=== PATIENT | female | born 1960 ===

== ENCOUNTER 2018-09-06 14:41 | Inpatient (IN) | payer BC, OTHER ==
[2018-09-06 15:22] VITALS: BMI 26.6
--- NOTE | 2018-09-06 16:23 | ED PDOC ---
Arrival/HPI - General Time Seen by Provider: 09/06/18 14:50 Historian: Patient - History of Present Illness Narrative History of Present Illness (Text): 09/06/18 16:19 58 year old F with pmh of lupus and hypothyroid presents with LOC and headache s/p fall at home prior to arrival. Patient reports ambulating and suddenly passing out at home, hitting her head on the floor. Patient denies head trauma prior to LOC. Patient denies any fevers, chills, dizziness, chest pain, shortness of breath, dyspnea on exertion, cough, abdominal pain, nausea, vomiting, diarrhea, back pain, neck pain, or any other complaint. Time/Duration: Prior to Arrival Symptom Onset: Sudden Symptom Course: Unchanged Activities at Onset: Light Context: Home Past Medical History - Provider Review Nursing Documentation Reviewed: Yes - Tetanus Immunization Tetanus Immunization: Unknown - Neurological Hx Migraine: Yes - Endocrine/Metabolic Hx Hypothyroidism: Yes Hx Systemic Lupus Erythematosus: Yes - Gastrointestinal Hx Gastroesophageal Reflux: Yes - Psychiatric Hx Psychophysiologic Disorder: No Hx Substance Use: No - Surgical History Hx Cholecystectomy: Yes Hx Gastric Bypass Surgery: Yes Hx Hysterectomy: Yes Hx Thyroidectomy: Yes - Anesthesia Hx Anesthesia: Yes Hx Anesthesia Reactions: No Hx Malignant Hyperthermia: No - Suicidal Assessment Feels Threatened In Home Enviroment: No Family/Social History - Physician Review Nursing Documentation Reviewed: Yes Family/Social History: Unknown Family HX Smoking Status: Never Smoked Hx Alcohol Use: Yes Hx Substance Use: No Hx Substance Use Treatment: No Allergies/Home Meds Allergies/Adverse Reactions: Allergies No Known Allergies Allergy (Verified 09/11/15 15:48) Home Medications: Home Meds Medication Instructions Recorded Confirmed Atorvastatin [Lipitor] 20 mg PO DAILY 09/11/15 09/11/15 Hydroxychloroquine Sulfate 200 mg PO BID 09/11/15 09/11/15 Levothyroxine Sodium [Synthroid] 325 mcg PO DAILY 09/11/15 09/11/15 Linaclotide [Linzess] 145 mcg PO PRN PRN 09/11/15 09/11/15 Polyethylene Glycol 3350 [[id number]] 17 gm PO PRN PRN 09/11/15 09/11/15 Zolpidem [Ambien] 10 mg PO HS 09/11/15 09/11/15 Review of Systems - Physician Review All systems were reviewed & negative as marked: Yes - Review of Systems Constitutional: absent: Fevers ENT: absent: Sore Throat, Rhinorrhea, Epistaxis Respiratory: absent: SOB, Cough, Wheezing Cardiovascular: Syncope. absent: Chest Pain Gastrointestinal: absent: Abdominal Pain, Diarrhea, Nausea, Vomiting, Hematochezia Genitourinary Female: absent: Dysuria, Hematuria Musculoskeletal: absent: Arthralgias, Back Pain, Joint Swelling, Myalgias Skin: absent: Rash, Laceration, Ulcer Neurological: Headache. absent: Dizziness, Facial Droop Physical Exam Vital Signs Reviewed: Yes Vital Signs Temp Pulse Resp BP Pulse Ox 09/06/18 15:20 98.2 F 99 H 18 118/84 96 Temperature: Afebrile Blood Pressure: Normal Pulse: Tachycardic Respiratory Rate: Normal Appearance: Positive for: Well-Appearing, Non-Toxic, Comfortable Pain Distress: Mild Mental Status: Positive for: Alert and Oriented X 3 Finger Stick Blood Glucose: 136 - Systems Exam Head: Present: Atraumatic, Normocephalic Pupils: Present: PERRL Extroacular Muscles: Present: EOMI Conjunctiva: Present: Normal Mouth: Present: Moist Mucous Membranes Neck: Present: Normal Range of Motion Respiratory/Chest: Present: Clear to Auscultation, Good Air Exchange. No: Respiratory Distress, Accessory Muscle Use Cardiovascular: Present: Normal S1, S2, Tachycardic. No: Murmurs Abdomen: No: Tenderness, Distention, Peritoneal Signs Back: Present: Normal Inspection Upper Extremity: Present: Normal Inspection. No: Cyanosis, Edema Lower Extremity: Present: Normal Inspection. No: Edema Neurological: Present: GCS=15, CN II-XII Intact, Speech Normal Skin: Present: Warm, Dry, Pale. No: Rashes Psychiatric: Present: Alert, Oriented x 3, Normal Insight, Normal Concentration Medical Decision Making ED Course and Treatment: 09/06/18 16:18 Impression: 58 year old F presents with LOC and headache s/p fall at home prior to arrival. Patient reports ambulating and suddenly passing out at home, hitting her head on the floor. Patient denies head trauma prior to LOC Plan: -- CT head w/o contrast -- Labs -- EKG -- UA -- Reassess and disposition Prior Visits: Notes and results from previous visits were reviewed. Patient was last seen in the emergency department on [facility] Notes: EKG: Sinus Tachycardia at 101 BPM, Non specific ST/T wave changes. No previous EKG for comparison. 09/06/18 17:39 Chest X-ray -- No active disease. Head CT -- Possible small focal right parietal subarachnoid hemmorrhage. Follow-up advised within 24hr with repeat CT examination. No additional abnormality. 09/06/18 18:36 s/p syncope. head c ?sah. discussed with dr haynes. advises no indication for repeat imaging. states normal head ct. updated hospitalist. 09/06/18 18:[address] smith request hospitalist admission. - RAD Interpretation Radiology Orders: 09/06/18 15:25 HEAD W/O CONTRAST [CT] Stat CHEST PORTABLE [RAD] Stat - Scribe Statement The provider has reviewed the documentation as recorded by the Thi Stevens All medical record entries made by the Scribe were at my direction and personally dictated by me. I have reviewed the chart and agree that the record accurately reflects my personal performance of the history, physical exam, medical decision making, and the department course for this patient. I have also personally directed, reviewed, and agree with the discharge instructions and disposition. Disposition/Present on Arrival - Present on Arrival Any Indicators Present on Arrival: No History of DVT/PE: No History of Uncontrolled Diabetes: No Urinary Catheter: No History Surgical Site Infection Following: None - Disposition Have Diagnosis and Disposition been Completed?: Yes Diagnosis: Syncope Disposition: HOME/ ROUTINE Disposition Time: 15:00 Condition: STABLE
[2018-09-06 16:36] LABS: ALB/GLOB RATIO 1.1 (1.1-1.8); ALBUMIN 4.3 g/dL (3.0-4.8); ALT/SGPT 46 U/L (7-56); AST/SGOT 53 U/L (14-36); BLOOD UREA NITROGEN 17 mg/dL (7-21); GFR NON-AFRICAN AMERICAN 57
[2018-09-06 16:44] LABS: TROPONIN I < 0.01 ng/mL
[2018-09-06 17:03] LABS: BASO # 0.02 K/mm3 (0.0-2.0); BASO % 0.3 % (0.0-3.0); EOS % 0.5 % (1.5-5.0); HEMOGLOBIN 13.7 g/dL (12.0-16.0); LYMPH # 1.4 (1.2-3.4); LYMPH % 22.8 % (22.0-35.0); MEAN CELL VOLUME 93.8 fl (80.0-105.0); MEAN CORPUSCULAR HEMOGLOBIN 30.4 pg (25.0-35.0); MEAN CORPUSCULAR HGB CONC 32.5 g/dl (31.0-37.0); MEAN PLATELET VOLUME 8.9 fl (7.0-11.0); MONO # 0.3 (0.1-0.6); MONO % 5.5 % (1.0-6.0); RBC 4.5 10^6/uL (3.5-6.1); RED CELL DISTRIBUTION WIDTH 13.5 % (11.5-14.5)
[2018-09-06 17:05] LABS: INR 1.05; PARTIAL THROMBOPLASTIN TIME 32.3 Seconds (26.9-38.3); PROTHROMBIN TIME 11.7 SECONDS (9.4-12.5)
--- NOTE | 2018-09-06 17:08 | RAD ---
Date of service: 09/06/2018 HISTORY: syncope COMPARISON: No prior. TECHNIQUE: 1 view obtained. FINDINGS: LUNGS: No active pulmonary disease. PLEURA: No significant pleural effusion identified, no pneumothorax apparent. CARDIOVASCULAR: No aortic atherosclerotic calcification present. Normal cardiac size. No pulmonary vascular congestion. OSSEOUS STRUCTURES: No significant abnormalities. VISUALIZED UPPER ABDOMEN: Normal. OTHER FINDINGS: None. IMPRESSION: No active disease.
--- NOTE | 2018-09-06 17:12 | CT ---
Date of service: 09/06/2018 PROCEDURE: CT HEAD WITHOUT CONTRAST. HISTORY: syncope COMPARISON: None available. TECHNIQUE: Axial computed tomography images were obtained through the head/brain without intravenous contrast. Radiation dose: Total exam DLP = 805.49 mGy-cm. This CT exam was performed using one or more of the following dose reduction techniques: Automated exposure control, adjustment of the mA and/or kV according to patient size, and/or use of iterative reconstruction technique. FINDINGS: HEMORRHAGE: Questionable very small focal right parietal subarachnoid hemorrhage. Follow-up CT within 24 hr is advised. No other abnormal intracranial hemorrhage elsewhere. BRAIN: No mass effect or edema. No significant atrophy. No chronic white matter ischemic change. VENTRICLES: No hydrocephalus. Incidentally noted cavum septum pellucidum. CALVARIUM: Unremarkable. PARANASAL SINUSES: Unremarkable as visualized. No significant inflammatory changes. MASTOID AIR CELLS: Unremarkable as visualized. No inflammatory changes. OTHER FINDINGS: None. IMPRESSION: Possible small focal right parietal subarachnoid hemorrhage. Follow-up advised within [address] examination. No additional abnormality.
[2018-09-06 19:21] LABS: URINE BILIRUBIN SMALL (NEGATIVE); URINE BLOOD NEGATIVE (NEGATIVE); URINE GLUCOSE (UA) NEGATIVE (NEGATIVE); URINE LEUKOCYTE ESTERASE SMALL Leu/uL (NEGATIVE); URINE PROTEIN TRACE mg/dL (<30 mg/dL); URINE UROBILINOGEN 0.2 E.U./dL (<1 E.U./dL)
[2018-09-06 19:23] LABS: URINE APPEARANCE CLEAR (CLEAR); URINE COLOR YELLOW (YELLOW)
[2018-09-06 19:33] LABS: URINE BACTERIA SMALL /hpf
[2018-09-06 21:25] LABS: BENZODIAZEPINES, UR NEGATIVE (NEGATIVE)
--- NOTE | 2018-09-06 21:31 | CP.PCM.HP ---
<MehrdadMichelle - Last Filed: 09/06/18 22:30> History of Present Illness - History of Present Illness History of Present Illness: HISTORY & PHYSICAL NOTE FOR HOSPITALIST SERVICE- DR. SHERRON Cronin PGY1 58 y/o F with PMH of SLE, Hypothyroidism, iron deficiency anemia, fibromyalgia, nephrolithiasis, HLD, MICHOACANO on CPAP, migraines presented to ED after being bib EMS after a fainting spell and fall at home. Per pt and at bedside, pt was laying on couch watching when she suddenly got up, began walking a few feet and suddenly fell backward, landing on her sacrum and back. Pt denies any preceding aura, dizziness, chest pain, palpitations prior to the event. Per , pt had lost consciousness for about 10 seconds before waking back up. He denies seeing any convulsions, foaming of the mouth, tongue biting, urinary/bowel incontinence. Upon waking up, pt report she was confused as to what happened and where she was. She denied paralysis upon waking up, however did report general confusion. While in ambulance, symptoms had resolved and she was more alert. Upon interview in ED, pt report she has a diffuse headache and her sacrum hurts where she landed on her back. She denies any neurological symptoms including numbness, tingling, weakness, dizziness, photophobia, neck stiffness. She also denies fevers, chills, chest pain, palpitations, shortness of breath, nausea, vomiting, constipation, diarrhea, dysuria, hematuria. PMH: SLE, hypothyroidism, goiters, iron deficiency anemia, fibromyalgia, nephrolithiasis, HLD, MICHOACANO on CPAP, migraines, All: NKDA PSH: thyroidectomy, cholecystectomy (1981), hysterectomy SH: Denies smoking, ETOH, illicit drug use FH: Mother: : schizophrenia, ETOH abuse. Father: noncontributory Meds: xanax 0.25bid, flexeril 10mg qd, zoloft 50mg qd, ambien cr 12.5mg hs ([facility]). Per pt, hydroxychloroquine, gabapentin, ambien, levothyroxine PMD: Dr. Mayorga Bag Washer: Dr. Ngo (anemia) Neurologist: Dr. Metcalf (migraines) Screw Eye Assembler: Dr. Liz Pharmacy: [facility] Present on Admission - Present on Admission Any Indicators Present on Admission: No Review of Systems - Review of Systems Review of Systems: per HPI Past Patient History - Tetanus Immunizations Tetanus Immunization: Unknown - Past Social History Smoking Status: Never Smoked - NEUROLOGICAL Hx Migraine: Yes - ENDOCRINE/METABOLIC Hx Hypothyroidism: Yes Hx Systemic Lupus Erythematosus: Yes - GASTROINTESTINAL Hx Gastroesophageal Reflux: Yes - PSYCHIATRIC Hx Psychophysiologic Disorder: No Hx Substance Use: No - SURGICAL HISTORY Hx Cholecystectomy: Yes Hx Gastric Bypass Surgery: Yes Hx Hysterectomy: Yes Hx Thyroidectomy: Yes - ANESTHESIA Hx Anesthesia: Yes Hx Anesthesia Reactions: No Hx Malignant Hyperthermia: No Meds Home Medications: Home Medication List Medication Instructions Recorded Confirmed Type Atorvastatin [Lipitor] 40 mg PO DAILY 30 Days #30 tab 09/08/18 Rx Levothyroxine Sodium [Synthroid] 400 mcg PO QAM 30 Days #30 tablet 09/08/18 Rx Allergies/Adverse Reactions: Allergies Allergy/AdvReac Type Severity Reaction Status Date / Time No Known Allergies Allergy Verified 09/06/18 22:13 Physical Exam - Constitutional Appears: Well, Non-toxic, No Acute Distress - Head Exam Head Exam: NORMAL INSPECTION, NORMOCEPHALIC - Eye Exam Eye Exam: EOMI, Normal appearance - ENT Exam ENT Exam: Mucous Membranes Moist, Normal Exam Additional comments: well healed scar over thyroid region - Neck Exam Neck exam: Positive for: Normal Inspection. Negative for: Meningismus - Respiratory Exam Respiratory Exam: Clear to Auscultation Bilateral, NORMAL BREATHING PATTERN - Cardiovascular Exam Cardiovascular Exam: REGULAR RHYTHM, +S1, +S2 - GI/Abdominal Exam GI & Abdominal Exam: Soft. absent: Tenderness - Extremities Exam Extremities exam: Positive for: normal inspection. Negative for: calf tenderness - Back Exam Back exam: NORMAL INSPECTION - Neurological Exam Neurological exam: Alert, CN II-XII Intact, Oriented x3 - Psychiatric Exam Psychiatric exam: Normal Affect, Normal Mood - Skin Skin Exam: Dry, Intact, Warm Results - Vital Signs Recent Vital Signs: Last Vital Signs Temp 98.2 F 09/06/18 15:20 Pulse 88 09/06/18 20:56 Resp 18 09/06/18 20:56 BP 138/87 09/06/18 20:56 Pulse Ox 97 09/06/18 20:56 - Labs Result Diagrams: 09/06/18 16:15 09/06/18 16:15 Labs: Laboratory Results - last 24 hr 09/06/18 09/06/18 09/06/18 16:15 16:15 16:15 WBC 6.0 RBC 4.50 Hgb 13.7 Hct 42.2 MCV 93.8 MCH 30.4 MCHC 32.5 RDW 13.5 Plt Count 246 MPV 8.9 Neut % (Auto) 70.9 H Lymph % (Auto) 22.8 [place] % (Auto) 5.5 Eos % (Auto) 0.5 L Baso % (Auto) 0.3 Lymph # (Auto) 1.4 [place] # (Auto) 0.3 Eos # (Auto) 0.0 Baso # (Auto) 0.02 Absolute Neuts (auto) 4.25 PT 11.7 INR 1.05 APTT 32.3 Sodium 135 Potassium 3.6 Chloride 105 Carbon Dioxide 24 Anion Gap 9 L BUN 17 Creatinine 1.0 Est GFR ( Amer) > 60 Est GFR (Non-Af Amer) 57 Random Glucose 100 Calcium 8.0 L Magnesium 1.8 Total Bilirubin 0.4 AST 53 H ALT 46 Alkaline Phosphatase 72 Lactate Dehydrogenase 673 Total Creatine Kinase 195 Troponin I < 0.01 Total Protein 8.3 Albumin 4.3 Globulin 4.0 Albumin/Globulin Ratio 1.1 Urine Color Urine Appearance Urine pH Ur Specific [place] Urine Protein Urine Glucose (UA) Urine Ketones Urine Blood Urine Nitrate Urine Bilirubin Urine Urobilinogen Ur Leukocyte Esterase Urine RBC Urine WBC Ur Epithelial Cells Urine Bacteria Urine Methadone Screen U Benzodiazepines Scrn Blood Type Antibody Screen BBK History Checked 09/06/18 09/06/18 09/06/18 18:30 18:50 20:56 WBC RBC Hgb Hct MCV MCH MCHC RDW Plt Count MPV Neut % (Auto) Lymph % (Auto) [place] % (Auto) Eos % (Auto) Baso % (Auto) Lymph # (Auto) [place] # (Auto) Eos # (Auto) Baso # (Auto) Absolute Neuts (auto) PT INR APTT Sodium Potassium Chloride Carbon Dioxide Anion Gap BUN Creatinine Est GFR ( Amer) Est GFR (Non-Af Amer) Random Glucose Calcium Magnesium Total Bilirubin AST ALT Alkaline Phosphatase Lactate Dehydrogenase Total Creatine Kinase Troponin I Total Protein Albumin Globulin Albumin/Globulin Ratio Urine Color Yellow Urine Appearance Clear Urine pH 6.0 Ur Specific [place] 1.025 Urine Protein Trace H Urine Glucose (UA) Negative Urine Ketones Trace H Urine Blood Negative Urine Nitrate Negative Urine Bilirubin Small H Urine Urobilinogen 0.2 Ur Leukocyte Esterase Small H Urine RBC None Urine WBC 2 - 5 Ur Epithelial Cells 10 - 12 H Urine Bacteria Small Urine Methadone Screen Negative U Benzodiazepines Scrn Negative Blood Type A NEGATIVE Antibody Screen Negative BBK History Checked No verified bt Assessment & Plan - Assessment and Plan (Free Text) Assessment: 58 y/o F with PMH of SLE, Hypothyroidism, iron deficiency anemia, fibromyalgia, nephrolithiasis, HLD, MICHOACANO on CPAP, migraines presented to ED after being bib EMS after a fainting spell and fall at home. CT Head reveals questional parietal subarachnoid hemorrhage, neurosurgery made aware in ED and interpreted CT head not requiring intervention. Plan: Syncope s/p fall CTH 09/06: Possible small focal right parietal subarachnoid hemorrhage. Follow- up advised within [address] examination. No additional abnormality Neurosurgery recommending no acute intervention carotid U/s Echo repeat CT head in 24 hours Neurology consult fall precautions, neuro checks PT eval & treat acetaminophen for headache Hypothyroidism continue home levothyroxine SLE continue home hydroxychloroquine DVT/GI PPX: SCD/pepcid Case reviewed with attending physician, Dr. Sherron Cronin PGY1 <Argentina Pedro - Last Filed: 09/08/18 16:41> Results - Vital Signs Recent Vital Signs: Last Vital Signs Temp 97.5 F L 09/08/18 12:00 Pulse 81 09/08/18 12:00 Resp 20 09/08/18 12:00 BP 137/93 H 09/08/18 12:00 Pulse Ox 97 09/08/18 06:00 - Labs Result Diagrams: 09/08/18 06:10 09/08/18 06:10 Labs: Laboratory Results - last 24 hr 09/08/18 09/08/18 09/08/18 06:10 06:10 06:10 WBC 4.1 L D RBC 4.19 Hgb 12.6 Hct 38.4 MCV 91.6 MCH 30.1 MCHC 32.8 RDW 13.7 Plt Count 205 MPV 8.6 Neut % (Auto) 37.8 L Lymph % (Auto) 49.4 H [place] % (Auto) 9.1 H Eos % (Auto) 2.2 Baso % (Auto) 1.5 Lymph # (Auto) 2.0 [place] # (Auto) 0.4 Eos # (Auto) 0.1 Baso # (Auto) 0.06 Absolute Neuts (auto) 1.54 Sodium 139 Potassium 3.6 Chloride 103 Carbon Dioxide 25 Anion Gap 14 BUN 12 Creatinine 0.9 Est GFR ( Amer) > 60 Est GFR (Non-Af Amer) > 60 Random Glucose 77 Calcium 7.7 L Phosphorus 5.5 H Magnesium 1.7 Total Bilirubin 0.9 AST 53 H ALT 42 Alkaline Phosphatase 74 Total Protein 7.5 Albumin 3.9 Globulin 3.6 Albumin/Globulin Ratio 1.1 Free T4 0.79 Thyroxine (T4) 5.4 L TSH 3rd Generation 162.00 H Attending/Attestation - Attestation I have personally seen and examined this patient.: Yes I have fully participated in the care of the patient.: Yes I have reviewed all pertinent clinical information: Yes Notes (Text): 09/08/18 16:34 Attending note ; Patient Seen and examined with resident. Patient is alert and awake. Patient has been by the bedside. Currently denies any dizziness. Denies any chest pain, shortness of breath Denies any abdominal pain, nausea, vomiting. Denies any urinary, bowel symptoms Patient is a 58-year-old female with PMH of SLE, Hypothyroidism, iron deficiency anemia, fibromyalgia, nephrolithiasis, HLD, migraines presented to ED after being bib EMS after a fainting spell and fall at home. 1. Syncope/fall; patient denied urinary or bowel incontinence. Currently has mild headache CT head showed possible subarachnoid hemorrhage. ER attending discussed with neurosurgery in detail. Neurosurgery reviewed the CAT scan stated that there is no bleeding noted. Monitor patient closely in te lemetry. Carotid Doppler, echocardiogram ordered. neurology evaluation requested. Repeat CT head ordered. 2.Lupus; continue hydroxychloroquine . 3. Fibromyalgia; patient has chronic pain syndrome. Takes Xanax and Flexeril as needed. 4. Insomnia. ; Patient takes high-dose of Ambien at night . Advised to taper down. Possible polypharmacy's reason for syncope. 5. Hypothyroidism; Patient has history of thyroidectomy. TSH ordered. Continue Synthroid. Orthostatic blood pressure ordered. PT evaluation requested. Upon discharge the patient will follow up with PMD . 09/08/18 16:40
[2018-09-06 21:33] LABS: BARBITURATES, UR NEGATIVE (NEGATIVE); OPIATES, UR NEGATIVE (NEGATIVE); PHENCYCLIDINE, UR NEGATIVE (NEGATIVE)
[2018-09-07] MEDS ORDERED: Pneumococcal 23-Valent Vaccine IM ONE (01:24)
[2018-09-07] MEDS ORDERED: LEVOTHYROXINE PO SCH (06:00)
[2018-09-07] MEDS ORDERED: Levothyroxine 100 MCG TAB ONE (06:16)
[2018-09-07 07:21] LABS: BASO # 0.03 K/mm3 (0.0-2.0); BASO % 0.5 % (0.0-3.0); EOS # 0.1 (0.0-0.7); EOS % 1.3 % (1.5-5.0); HEMOGLOBIN 13.3 g/dL (12.0-16.0); LYMPH # 2.1 (1.2-3.4); LYMPH % 38.2 % (22.0-35.0); MEAN CELL VOLUME 93.2 fl (80.0-105.0); MEAN CORPUSCULAR HEMOGLOBIN 30.2 pg (25.0-35.0); MEAN CORPUSCULAR HGB CONC 32.4 g/dl (31.0-37.0); MEAN PLATELET VOLUME 8.8 fl (7.0-11.0); MONO # 0.4 (0.1-0.6); MONO % 6.9 % (1.0-6.0); RBC 4.41 10^6/uL (3.5-6.1); RED CELL DISTRIBUTION WIDTH 13.7 % (11.5-14.5); WHITE BLOOD COUNT 5.5 10^3/uL (4.5-11.0)
[2018-09-07 07:44] LABS: ALB/GLOB RATIO 1.1 (1.1-1.8); ALBUMIN 4.1 g/dL (3.0-4.8); ALT/SGPT 38 U/L (7-56); AST/SGOT 58 U/L (14-36); BLOOD UREA NITROGEN 15 mg/dL (7-21); GFR NON-AFRICAN AMERICAN 57; HDL CHOLESTEROL 61 mg/dL (29-60)
[2018-09-07 07:50] LABS: LDL CHOLESTEROL 294 mg/dL (0-129)
[2018-09-07 07:55] LABS: FREE T4 < 0.07 ng/dL (0.78-2.19)
--- NOTE | 2018-09-07 09:21 | CARD ---
APPROVED REPORT Date of service: 09/06/2018 EKG Measurement Heart [id number] <Conclusion> Sinus tachycardia Nonspecific ST and T wave abnormality Abnormal ECG
--- NOTE | 2018-09-07 09:31 | CP.PCM.CON ---
History of Present Illness - History of Present Illness History of Present Illness: PGY-[address] Marcos Alvares consult: Hypothyroidism Mr Derrick, 58 F with PMH of SLE, surgical hypothyroidism s/p thyroidectomy x 2 due to goiter, iron deficiency anemia, fibromyalgia, nephrolithiasis, HLD, MICHOACANO on CPAP, migraines was brought to hospital s/p syncope and fall. Pt stood up from the couch, began walking a few feet and suddenly fell backward, landing on her sacrum and back. She is admitted for syncope and fall. CT scan showed possible small R parietal subarachnoid hemorrhage. EKG nsr 101, nonspecific ST/Tw changes, QTc 487. Giorgio was consulted for hypothyrodism TSH 200, FT4 < 0.07. At home she is taking levothyroxine 325 daily but skipped the medicine x 6 days because of traveling to [facility] to see granddaughter ROS - denies any neurological symptoms including numbness, tingling, weakness, dizziness, photophobia, neck stiffness. She also denies fevers, chills, chest pain, palpitations, shortness of breath, nausea, vomiting, diarrhea, dysuria, hematuria. (+) constipation PMH: SLE, HLD MICHOACANO on CPAP hypothyroidism, goiters, iron deficiency anemia, fibromyalgia, nephrolithiasis Migraines, PSH: thyroidectomy (, 1999s), cholecystectomy (1981), hysterectomy FH: Mother: : schizophrenia, ETOH abuse. Father: noncontributory SH: Denies smoking, ETOH, illicit drug use All: NKDA Meds: xanax 0.25bid, flexeril 10mg qd, zoloft 50mg qd, ambien cr 12.5mg hs ([facility]). Per pt, hydroxychloroquine, gabapentin, ambien, levothyroxine PMD: Dr. Mayorga [employer] Roboticist: Dr. Ngo (anemia) Neurologist: Dr. Metcalf (migraines) Technical Spec: Dr. Liz Past Patient History - Tetanus Immunizations Tetanus Immunization: Unknown - Past Social History Smoking Status: Never Smoked - CARDIAC Hx Cardiac Disorders: Yes Hx Hypercholesterolemia: Yes Hx Hypertension: Yes - PULMONARY Hx Respiratory Disorders: Yes Hx Sleep Apnea: Yes (CPAP) - NEUROLOGICAL Hx Neurological Disorder: Yes (FIBROMYALGIA) Hx Dizziness: Yes (SYNCOPE) Hx Migraine: Yes - HEENT Hx HEENT Problems: No - RENAL Hx Chronic Kidney Disease: No - ENDOCRINE/METABOLIC Hx Endocrine Disorders: Yes Hx Hypothyroidism: Yes Hx Systemic Lupus Erythematosus: Yes - HEMATOLOGICAL/ONCOLOGICAL Hx Blood Disorders: No - INTEGUMENTARY Hx Dermatological Problems: No - MUSCULOSKELETAL/RHEUMATOLOGICAL Hx Musculoskeletal Disorders: Yes Hx Falls: Yes (SYNCOPE 09-06-18) - GASTROINTESTINAL Hx Gastrointestinal Disorders: Yes (GASTROENTERITIS,CONSTIPATION,) Hx Gall Bladder Disease: Yes (CHOLECYSTECTOMY) Hx Gastroesophageal Reflux: Yes - GENITOURINARY/GYNECOLOGICAL Hx Genitourinary Disorders: No - PSYCHIATRIC Hx Psychophysiologic Disorder: Yes (INSOMNIA) Hx Anxiety: Yes - SURGICAL HISTORY Hx Surgeries: Yes Hx Cholecystectomy: Yes Hx Gastric Bypass Surgery: Yes Hx Hysterectomy: Yes - ANESTHESIA Hx Anesthesia: Yes Hx Anesthesia Reactions: No Hx Malignant Hyperthermia: No Meds Allergies/Adverse Reactions: Allergies Allergy/AdvReac Type Severity Reaction Status Date / Time No Known Allergies Allergy Verified 09/06/18 22:13 - Medications Medications: Current Medications Acetaminophen (Tylenol 325mg Tab) 650 mg PO Q6H PRN PRN Reason: Pain, Mild (1-3) Last Admin: 09/06/18 21:32 Dose: 650 mg Atorvastatin Calcium (Lipitor) 20 mg PO DAILY [facility] Last Admin: 09/07/18 09:28 Dose: 20 mg Famotidine (Pepcid) 20 mg PO 1000,2200 [facility] Last Admin: 09/07/18 09:28 Dose: 20 mg Hydroxychloroquine Sulfate (Plaquenil) 200 mg PO BID [facility]; Protocol Last Admin: 09/07/18 09:28 Dose: 200 mg Levothyroxine Sodium 125 mcg/ (Levothyroxine Sodium 200 mcg) 325 mcg PO 0600 [facility] Last Admin: 09/07/18 06:25 Dose: 325 mcg Zolpidem Tartrate (Ambien) 5 mg PO HS [facility]; Protocol Last Admin: 09/06/18 22:37 Dose: 5 mg Physical Exam - Constitutional Appears: No Acute Distress - Head Exam Head Exam: ATRAUMATIC, NORMAL INSPECTION, NORMOCEPHALIC - Eye Exam Eye Exam: EOMI, Normal appearance, PERRL. absent: Scleral icterus Pupil Exam: NORMAL ACCOMODATION - ENT Exam ENT Exam: Mucous Membranes Moist - Neck Exam Neck exam: Negative for: Thyromegaly Additional comments: supple, no neck tenderness, scar healed well - Respiratory Exam Respiratory Exam: Clear to Auscultation Bilateral. absent: Rales, Rhonchi, Wheezes - Cardiovascular Exam Cardiovascular Exam: REGULAR RHYTHM, +S1, +S2 - GI/Abdominal Exam GI & Abdominal Exam: Normal Bowel Sounds, Soft. absent: Tenderness - Extremities Exam Extremities exam: Negative for: calf tenderness, pedal edema - Back Exam Back exam: absent: CVA tenderness (L), CVA tenderness (R) - Neurological Exam Neurological exam: Alert, CN II-XII Intact, Oriented x3 - Psychiatric Exam Psychiatric exam: Normal Affect, Normal Mood - Skin Skin Exam: Dry, Warm Results - Vital Signs Recent Vital Signs: Last Vital Signs Temp 97.8 F 09/07/18 06:00 Pulse 86 09/07/18 06:00 Resp 18 09/07/18 06:00 BP 116/77 09/07/18 06:00 Pulse Ox 96 09/07/18 06:00 - Labs Result Diagrams: 09/07/18 07:00 09/07/18 07:00 Labs: Laboratory Results - last 24 hr 09/06/18 09/06/18 09/06/18 16:15 16:15 16:15 WBC 6.0 RBC 4.50 Hgb 13.7 Hct 42.2 MCV 93.8 MCH 30.4 MCHC 32.5 RDW 13.5 Plt Count 246 MPV 8.9 Neut % (Auto) 70.9 H Lymph % (Auto) 22.8 [place] % (Auto) 5.5 Eos % (Auto) 0.5 L Baso % (Auto) 0.3 Lymph # (Auto) 1.4 [place] # (Auto) 0.3 Eos # (Auto) 0.0 Baso # (Auto) 0.02 Absolute Neuts (auto) 4.25 PT 11.7 INR 1.05 APTT 32.3 Sodium 135 Potassium 3.6 Chloride 105 Carbon Dioxide 24 Anion Gap 9 L BUN 17 Creatinine 1.0 Est GFR ( Amer) > 60 Est GFR (Non-Af Amer) 57 Random Glucose 100 Calcium 8.0 L Phosphorus Magnesium 1.8 Total Bilirubin 0.4 AST 53 H ALT 46 Alkaline Phosphatase 72 Lactate Dehydrogenase 673 Total Creatine Kinase 195 Troponin I < 0.01 Total Protein 8.3 Albumin 4.3 Globulin 4.0 Albumin/Globulin Ratio 1.1 Triglycerides Cholesterol LDL Cholesterol Direct HDL Cholesterol Free T4 TSH 3rd Generation Urine Color Urine Appearance Urine pH Ur Specific [place] Urine Protein Urine Glucose (UA) Urine Ketones Urine Blood Urine Nitrate Urine Bilirubin Urine Urobilinogen Ur Leukocyte Esterase Urine RBC Urine WBC Ur Epithelial Cells Urine Bacteria Urine Opiates Screen Urine Methadone Screen Ur Barbiturates Screen Ur Phencyclidine Scrn Ur Amphetamines Screen U Benzodiazepines Scrn U Oth Cocaine Metabols U Cannabinoids Screen Blood Type Blood Type Confirm Antibody Screen BBK History Checked 09/06/18 09/06/18 09/06/18 18:30 18:50 20:56 WBC RBC Hgb Hct MCV MCH MCHC RDW Plt Count MPV Neut % (Auto) Lymph % (Auto) [place] % (Auto) Eos % (Auto) Baso % (Auto) Lymph # (Auto) [place] # (Auto) Eos # (Auto) Baso # (Auto) Absolute Neuts (auto) PT INR APTT Sodium Potassium Chloride Carbon Dioxide Anion Gap BUN Creatinine Est GFR ( Amer) Est GFR (Non-Af Amer) Random Glucose Calcium Phosphorus Magnesium Total Bilirubin AST ALT Alkaline Phosphatase Lactate Dehydrogenase Total Creatine Kinase Troponin I Total Protein Albumin Globulin Albumin/Globulin Ratio Triglycerides Cholesterol LDL Cholesterol Direct HDL Cholesterol Free T4 TSH 3rd Generation Urine Color Yellow Urine Appearance Clear Urine pH 6.0 Ur Specific [place] 1.025 Urine Protein Trace H Urine Glucose (UA) Negative Urine Ketones Trace H Urine Blood Negative Urine Nitrate Negative Urine Bilirubin Small H Urine Urobilinogen 0.2 Ur Leukocyte Esterase Small H Urine RBC None Urine WBC 2 - 5 Ur Epithelial Cells 10 - 12 H Urine Bacteria Small Urine Opiates Screen Negative Urine Methadone Screen Negative Ur Barbiturates Screen Negative Ur Phencyclidine Scrn Negative Ur Amphetamines Screen Negative U Benzodiazepines Scrn Negative U Oth Cocaine Metabols Negative U Cannabinoids Screen Negative Blood Type A NEGATIVE Blood Type Confirm Antibody Screen Negative BBK History Checked No verified bt 09/06/18 09/07/18 09/07/18 21:36 07:00 07:00 WBC 5.5 RBC 4.41 Hgb 13.3 Hct 41.1 MCV 93.2 MCH 30.2 MCHC 32.4 RDW 13.7 Plt Count 224 MPV 8.8 Neut % (Auto) 53.1 Lymph % (Auto) 38.2 H [place] % (Auto) 6.9 H Eos % (Auto) 1.3 L Baso % (Auto) 0.5 Lymph # (Auto) 2.1 [place] # (Auto) 0.4 Eos # (Auto) 0.1 Baso # (Auto) 0.03 Absolute Neuts (auto) 2.93 PT INR APTT Sodium 140 Potassium 4.0 Chloride 102 Carbon Dioxide 29 Anion Gap 13 BUN 15 Creatinine 1.0 Est GFR ( Amer) > 60 Est GFR (Non-Af Amer) 57 Random Glucose 81 Calcium 8.0 L Phosphorus 5.1 H Magnesium 1.7 Total Bilirubin 0.4 AST 58 H ALT 38 Alkaline Phosphatase 78 Lactate Dehydrogenase Total Creatine Kinase Troponin I Total Protein 8.1 Albumin 4.1 Globulin 3.9 Albumin/Globulin Ratio 1.1 Triglycerides 147 Cholesterol > 325 H LDL Cholesterol Direct 294 H HDL Cholesterol 61 H Free T4 TSH 3rd Generation Urine Color Urine Appearance Urine pH Ur Specific [place] Urine Protein Urine Glucose (UA) Urine Ketones Urine Blood Urine Nitrate Urine Bilirubin Urine Urobilinogen Ur Leukocyte Esterase Urine RBC Urine WBC Ur Epithelial Cells Urine Bacteria Urine Opiates Screen Urine Methadone Screen Ur Barbiturates Screen Ur Phencyclidine Scrn Ur Amphetamines Screen U Benzodiazepines Scrn U Oth Cocaine Metabols U Cannabinoids Screen Blood Type Blood Type Confirm A NEGATIVE Antibody Screen BBK History Checked 09/07/18 07:00 WBC RBC Hgb Hct MCV MCH MCHC RDW Plt Count MPV Neut % (Auto) Lymph % (Auto) [place] % (Auto) Eos % (Auto) Baso % (Auto) Lymph # (Auto) [place] # (Auto) Eos # (Auto) Baso # (Auto) Absolute Neuts (auto) PT INR APTT Sodium Potassium Chloride Carbon Dioxide Anion Gap BUN Creatinine Est GFR ( Amer) Est GFR (Non-Af Amer) Random Glucose Calcium Phosphorus Magnesium Total Bilirubin AST ALT Alkaline Phosphatase Lactate Dehydrogenase Total Creatine Kinase Troponin I Total Protein Albumin Globulin Albumin/Globulin Ratio Triglycerides Cholesterol LDL Cholesterol Direct HDL Cholesterol Free T4 < 0.07 L TSH 3rd Generation 200.00 H Urine Color Urine Appearance Urine pH Ur Specific [place] Urine Protein Urine Glucose (UA) Urine Ketones Urine Blood Urine Nitrate Urine Bilirubin Urine Urobilinogen Ur Leukocyte Esterase Urine RBC Urine WBC Ur Epithelial Cells Urine Bacteria Urine Opiates Screen Urine Methadone Screen Ur Barbiturates Screen Ur Phencyclidine Scrn Ur Amphetamines Screen U Benzodiazepines Scrn U Oth Cocaine Metabols U Cannabinoids Screen Blood Type Blood Type Confirm Antibody Screen BBK History Checked Assessment & Plan - Assessment and Plan (Free Text) Plan: Mr Meaz, 58 F with PMH of SLE, surgical hypothyroidism s/p thyroidectomy x 2 due to goiter, iron deficiency anemia, fibromyalgia, nephrolithiasis, HLD, MICHOACANO on CPAP, migraines was admitted for syncope and fall. CT scan showed possible small R parietal subarachnoid hemorrhage. EKG nsr 101, nonspecific ST/Tw changes, QTc 487. Endo was consulted for hypothyrodism TSH 200, FT4 < 0.07. At home she is taking levothyroxine 325 daily but skipped the medicine x 6 days because of traveling to [facility] to see granddaughter Surgical hypothyrodism, severe - Synthroid 400 IV x 1 today, 200 IV x 1 tomorrow. After discharge, start levothyroxine 400 mcg ACB starting - repeat thyroid function test tomorrow - follow thyroglobulin and calcitonin level s/r/d W Dr Rodríguez
[2018-09-07] MEDS ORDERED: LEVOTHYROXINE SODIUM 325 MCG PO SCH (10:00)
--- NOTE | 2018-09-07 10:59 | CARD ---
APPROVED REPORT Date of service: 09/07/2018 EXAM: Two-dimensional and M-mode echocardiogram with Doppler and color Doppler. INDICATION Syncope 2D DIMENSIONS Left Atrium (2D)3.5 (1.6-4.0cm)IVSd1.4 (0.7-1.1cm) LVDd3.4 (3.9-5.9cm)PWd1.4 (0.7-1.1cm) LVDs2.5 (2.5-4.0cm)FS (%) 26.0 % LVEF (%)52.2 (>50%) M-Mode DIMENSIONS Aortic Root2.30 (2.2-3.7cm)Aortic Cusp Exc.1.40 (1.5-2.0cm) Aortic Valve AoV Peak Nixveirv007.0cm/Ramon Peak GR.7mmHg Mitral Valve MV E Jrtrhtyw81.7cm/sMV A Jmgdjfyt41.7cm/sE/A ratio0.8 TDI E/Lateral E'0.0E/Medial E'0.0 LEFT VENTRICLE The left ventricle is normal size. There is mild to moderate concentric left ventricular hypertrophy. The left ventricular function is normal. The left ventricular ejection fraction is within the normal range. There is normal LV segmental wall motion. Transmitral Doppler flow pattern is Grade I-abnormal relaxation pattern. RIGHT VENTRICLE The right ventricle is normal size. There is normal right ventricular wall thickness. The right ventricular systolic function is normal. ATRIA The left atrium size is normal. The right atrium size is normal. AORTIC VALVE The aortic valve is normal in structure. No aortic regurgitation is present. There is no aortic valvular stenosis. MITRAL VALVE The mitral valve is normal in structure. Mitral regurgitation is trace. There is no mitral valve stenosis. TRICUSPID VALVE There is no tricuspid valve regurgitation noted. PULMONIC VALVE There is trace pulmonic valvular regurgitation. GREAT VESSELS The aortic root is normal in size. The IVC is normal in size and collapses >50% with inspiration. <Conclusion> There is mild to moderate concentric left ventricular hypertrophy. The left ventricular function is normal. The left ventricular ejection fraction is within the normal range. There is normal LV segmental wall motion. Transmitral Doppler flow pattern is Grade I-abnormal relaxation pattern.
[2018-09-07] MEDS ORDERED: Iohexol 350 MG/100 ML VIAL ONE (12:02)
[2018-09-07] MEDS ORDERED: Levothyroxine 100 mcg (0.1 mg) Inj IVP ONE ×2 (13:30→14:45)
--- NOTE | 2018-09-07 14:51 | US ---
PROCEDURE: Lateral carotid artery duplex ultrasound HISTORY: Carotid stenosis syncope PHYSICIAN(S): Kamron Polk MD. TECHNIQUE: Duplex sonography and color-flow Doppler were used to evaluate the carotid bifurcations and limited segments of the vertebral arteries bilaterally. FINDINGS: There is mild smooth hypoechoic plaque noted at the carotid bifurcations bilaterally. The peak systolic velocity in the proximal right internal carotid artery is 48 cm/sec. This corresponds to a 20 to 39% proximal right ICA stenosis. Normal systolic velocities are noted in the proximal right external carotid artery. There is antegrade flow in the right vertebral artery. The peak systolic velocity in the proximal left internal carotid artery is 47 cm/sec. This corresponds to a 20 to 39% proximal left ICA stenosis. Normal systolic velocities are noted in the proximal left external carotid artery. There is antegrade flow in the left vertebral artery. IMPRESSION: 1. Bilateral 20-39% proximal ICA stenoses. 2. Antegrade flow in both vertebral arteries.
--- NOTE | 2018-09-07 16:10 | CT ---
Date of service: 09/07/2018 PROCEDURE: CT HEAD WITHOUT CONTRAST. HISTORY: LOC, syncope COMPARISON: 09/06/2018 TECHNIQUE: Axial computed tomography images were obtained through the head/brain without intravenous contrast. Radiation dose: Total exam DLP = 914.48 mGy-cm. This CT exam was performed using one or more of the following dose reduction techniques: Automated exposure control, adjustment of the mA and/or kV according to patient size, and/or use of iterative reconstruction technique. FINDINGS: HEMORRHAGE: No intracranial hemorrhage. BRAIN: No mass effect or edema. No atrophy or chronic microvascular ischemic changes. VENTRICLES: Unremarkable. No hydrocephalus. CALVARIUM: Unremarkable. PARANASAL SINUSES: Unremarkable as visualized. No significant inflammatory changes. MASTOID AIR CELLS: Unremarkable as visualized. No inflammatory changes. OTHER FINDINGS: None. IMPRESSION: No acute intracranial findings
--- NOTE | 2018-09-07 16:29 | CT ---
Date of service: 09/07/2018 PROCEDURE: CT Angiography of the Head and Neck. HISTORY: r/o stroke COMPARISON: None available. TECHNIQUE: CT angiography of the head and neck was performed following intravenous contrast administration. Coronal and sagittal maximum intensity projection reformatted images were generated. Contrast Dose: Omnipaque 350, 96 cc Radiation dose: Total exam DLP = 521.35 mGy-cm. This CT exam was performed using one or more of the following dose reduction techniques: Automated exposure control, adjustment of the mA and/or kV according to patient size, and/or use of iterative reconstruction technique. FINDINGS: INTERNAL CEREBRAL ARTERIES: Note is made of partially calcified atherosclerosis of the bilateral cavernous internal carotid artery segments without significant stenosis. The skull base, petrous, and supraclinoid segments are bilaterally widely patent. ANTERIOR CEREBRAL ARTERIES: Unremarkable. A1 and A2 segments are widely patent. Smaller distal branches unremarkable, as visualized. MIDDLE CEREBRAL ARTERIES: Unremarkable. M1 and M2 segments are widely patent. Perisylvian branches grossly symmetric. POSTERIOR CIRCULATION: Basilar Artery: Unremarkable. Distal Vertebral Arteries: Balance vertebrobasilar circulation identified. Posterior Cerebral Arteries: Unremarkable. Posterior Inferior Cerebellar Arteries: Unremarkable. NECK CTA: Aortic Arch: Normal three vessel arch identified. Limited calcified atherosclerotic plaque identified at the arch. Common Carotid arteries: The bilateral common carotid appear widely patent from their origins to their bifurcations with no significant stenosis appreciated. No evidence to suggest common carotid artery dissection. Internal Carotid arteries: No significant stenosis is appreciated throughout the cervical internal carotid artery segments bilaterally and there is no evidence of dissection either. External Carotid arteries: Appear unremarkable bilaterally. Vertebral arteries: The bilateral vertebral arteries appear normal in caliber from their origins to their distal cervical segments. No significant stenosis or definite pattern of dissection. ANEURYSM/ VASCULAR MALFORMATIONS: None. OTHER FINDINGS: Limited bilateral basilar segmental atelectasis suggested at the bilateral upper lung zones as imaged. IMPRESSION: Intracranial CT angiography fails to demonstrate large vessel occlusion, aneurysm or arteriovascular malformation. Mild atherosclerotic plaque is identified at the bilateral cavernous internal carotid artery segments without significant stenosis. No significant stenosis bilateral common or internal carotid arteries in the neck.
--- NOTE | 2018-09-07 18:37 | CP.PCM.PN ---
<Michelle Cronin - Last Filed: 09/07/18 18:38> Subjective - Date & Time of Evaluation Date of Evaluation: 09/07/18 Time of Evaluation: 10:00 - Subjective Subjective: INTERNAL MEDICINE PROGRESS NOTE FOR DR. SHERRON Cronin PGY1 Pt seen and examined at bedside this am. No acute events overnight. Pt reports mild headache, however denies focal neurological symptoms. She has not walked yet. She otherwise denies ROS Objective - Vital Signs/Intake and Output Vital Signs (last 24 hours): Temp Pulse Resp BP Pulse Ox 98.2 F 90 18 122/81 96 09/07/18 12:00 09/07/18 12:00 09/07/18 12:00 09/07/18 12:00 09/07/18 06:00 Intake and Output: 09/07/18 09/07/18 06:59 18:59 Intake Total 540 Output Total 1 Balance 539 - Medications Medications: Current Medications Acetaminophen (Tylenol 325mg Tab) 650 mg PO Q6H PRN PRN Reason: Pain, Mild (1-3) Last Admin: 09/06/18 21:32 Dose: 650 mg Atorvastatin Calcium (Lipitor) 40 mg PO DAILY [facility] Famotidine (Pepcid) 20 mg PO 1000,2200 [facility] Last Admin: 09/07/18 09:28 Dose: 20 mg Hydroxychloroquine Sulfate (Plaquenil) 200 mg PO BID [facility]; Protocol Last Admin: 09/07/18 17:41 Dose: 200 mg Levothyroxine Sodium (Synthroid) 200 mcg IVP ONCE ONE Stop: 09/08/18 10:01 Zolpidem Tartrate (Ambien) 5 mg PO HS [facility]; Protocol Last Admin: 09/06/18 22:37 Dose: 5 mg - Labs Labs: 09/07/18 07:00 09/07/18 07:00 PT 11.7 SECONDS (9.4-12.5) 09/06/18 16:15 INR 1.05 09/06/18 16:15 APTT 32.3 Seconds (26.9-38.3) 09/06/18 16:15 - Constitutional Appears: Well, Non-toxic, No Acute Distress - Head Exam Head Exam: NORMAL INSPECTION, NORMOCEPHALIC - Eye Exam Eye Exam: EOMI, Normal appearance - ENT Exam ENT Exam: Mucous Membranes Moist, Normal Exam Additional comments: well healed scar over thyroid region - Neck Exam Neck exam: Positive for: Normal Inspection. Negative for: Meningismus - Respiratory Exam Respiratory Exam: Clear to Auscultation Bilateral, NORMAL BREATHING PATTERN - Cardiovascular Exam Cardiovascular Exam: REGULAR RHYTHM, +S1, +S2 - GI/Abdominal Exam GI & Abdominal Exam: Soft. absent: Tenderness - Extremities Exam Extremities exam: Positive for: normal inspection. Negative for: calf tenderness - Back Exam Back exam: NORMAL INSPECTION - Neurological Exam Neurological exam: Alert, CN II-XII Intact, Oriented x3 - Psychiatric Exam Psychiatric exam: Normal Affect, Normal Mood - Skin Skin Exam: Dry, Intact, Warm Assessment and Plan - Assessment and Plan (Free Text) Assessment: 58 y/o F with PMH of SLE, Hypothyroidism, iron deficiency anemia, fibromyalgia, nephrolithiasis, HLD, MICHOACANO on CPAP, migraines presented to ED after being bib EMS after a fainting spell and fall at home. CT Head reveals questional parietal subarachnoid hemorrhage, neurosurgery made aware in ED and interpreted CT head not requiring intervention Plan: Syncope s/p fall Rule-out cardiogenic, neurogenic causes. Likely in the setting of hypothyroidism vs polypharmacy. EKG: Sinus tachycardia, non-specific ST/T wave changes. HR 101. QTc 487. CTH 09/06: Possible small focal right parietal subarachnoid hemorrhage. Follow- up advised within [address] examination. No additional abnormality Neurosurgery recommending no acute intervention Repeat CTH 09/07: No acute intracranial findings Carotid U/S 09/07: 1. Bilateral 20-39% proximal ICA stenoses. 2. Antegrade flow in both vertebral arteries H/N CTA 09/07: Intracranial CT angiography fails to demonstrate large vessel occlusion, aneurysm or arteriovascular malformation. Mild atherosclerotic p laque is identified at the bilateral cavernous internal carotid artery segments without significant stenosis.No significant stenosis bilateral common or internal carotid arteries in the neck. Echo 09/07: mild-mod concentric LVH, LVEF 52.2% Neurology consult appreciate recs fall precautions, neuro checks check orthostatics vital signs Hold flexeril/xanax as they may be contributing to fall PT eval & treat acetaminophen for headache Surgical Hypothyroidism s/p thyroidectomy d/t goiters. TSH: 200, T4: 0.8, FT4: <0.07, FT3: 0.89 Will administer 400mcg levothyroxine IVP today and 200mcg IVP tomorrow. Pt to be discharged with home dose of po 400mcg levothyroxine Pt instructed to f/u outpatient with autobody technician for close monitoring f/u autoimmune hypothyroid workup SLE continue home hydroxychloroquine Hyperlipidemia Chol: >325, LDL 294 Continue atorvastatin 40 DVT/GI PPX: SCD/pepcid Dispo: PT recommending home. Pt needs close outpatient followup. Case reviewed with attending physician, Dr. Sherron Cronin PGY1 <Argentina Pedro - Last Filed: 09/08/18 16:45> Objective - Vital Signs/Intake and Output Vital Signs (last 24 hours): Temp Pulse Resp BP Pulse Ox 97.5 F L 81 20 137/93 H 97 09/08/18 12:00 09/08/18 12:00 09/08/18 12:00 09/08/18 12:00 09/08/18 06:00 Intake and Output: 09/08/18 09/08/18 06:59 18:59 Intake Total 480 960 Output Total 4 Balance 480 956 - Labs Labs: 09/08/18 06:10 09/08/18 06:10 PT 11.7 SECONDS (9.4-12.5) 09/06/18 16:15 INR 1.05 09/06/18 16:15 APTT 32.3 Seconds (26.9-38.3) 09/06/18 16:15 Attending/Attestation - Attestation I have personally seen and examined this patient.: Yes I have fully participated in the care of the patient.: Yes I have reviewed all pertinent clinical information, including history, physical exam and plan: Yes Notes (Text): 09/08/18 16:41 Attending note: Patient Seen and examined with resident. Patient is alert and awake. Currently denies any dizziness. Denies any chest pain, shortness of breath Denies any abdominal pain, nausea, vomiting. Denies any urinary, bowel symptoms. Patient is a 58-year-old female with PMH of SLE, Hypothyroidism, iron deficiency anemia, fibromyalgia, nephrolithiasis, HLD, migraines presented to ED after being bib EMS after a fainting spell and fall at home. 1. Syncope/fall; patient denied urinary or bowel incontinence. Currently has mild headache CT head showed possible subarachnoid hemorrhage. Neurology evaluation appreciated. CTA head and neck ordered. Carotid Doppler, echocardiogram ordered. neurology evaluation requested. Repeat CT head ordered. 2.Lupus; continue hydroxychloroquine . 3. Fibromyalgia; patient has chronic pain syndrome. Takes Xanax and Flexeril as needed. 4. Insomnia. ; Patient takes high-dose of Ambien at night . Advised to taper down. Possible polypharmacy's reason for syncope. 5. Hypothyroidism; Patient has history of thyroidectomy. TSH is 200. Added on IV Synthroid. Endocrinology evaluation appreciated. Patient compliance insisted in detail. Patient apparently did not take Sy nthroid over a week. 6. HyperLipidemia; Continue Lipitor. PT evaluation appreciated. Upon discharge the patient will follow up with PMD .
[2018-09-07 23:27] VITALS: RESP 20; O2SAT 97
--- NOTE | 2018-09-08 05:48 | CON ---
DATE: 09/07/2018 ENDOCRINOLOGY CONSULTATION LOCATION: Room #272. HISTORY OF PRESENT ILLNESS: This is a 58-year-old female, with known history of surgical hypothyroidism, presenting here with generalized body weakness and a sudden syncopal episode with an accidental fall and sustaining a head injury with a subarachnoid hemorrhage in the right parietal area and is now being referred for endocrine evaluation and management. MEDICATIONS: She is currently on levothyroxine at 325 mcg once daily, but admits to occasional drug omission and in fact was off the medications for almost a week prior to admission. On anxiolytic medications for generalized anxiety. PAST MEDICAL HISTORY: History of two thyroid resections for a recurrent multinodular goiter causing tracheal compression as noted, history of systemic lupus, on hydroxychloroquine therapy, history of hypertension and dyslipidemia, history of obstructive sleep apnea, on a CPAP mask every night, history of fibromyalgia and chronic iron-deficiency anemia, history of nephrolithiasis with no recurrent stone passage in the last year or so, history of migraine headaches with occasional visual changes. Also history of generalized anxiety, on anxiolytic medications. PAST SURGICAL HISTORY: She also had a prior cholecystectomy and hysterectomy. FAMILY HISTORY: Positive for hypertension and heart disease and her mother also had schizophrenia. ALLERGIES: SOCIAL HISTORY: The patient has a supportive family. No known substance use. REVIEW OF SYSTEMS: Admits to frequent migraine headaches and occasional visual changes. Also admits to recent bouts of dizziness and lightheadedness with near syncopal episodes and actually sustained a syncopal episode on the day of admission. Also admits to insomnia and disruptive sleep patterns and has been using Ambien therapy as noted. No chest pains or palpitations, but admits to occasional shortness of breath especially on exertion. Her oral intake has been variable with dyspepsia and habitual constipation. Also admits to vague upper abdominal pains. Moreover, admits to polyarthralgias and lower extremity paresthesias, especially nocturnally. PHYSICAL EXAMINATION: GENERAL: This is an average-built female, in no apparent distress. VITAL SIGNS: Blood pressure of 140/80, pulse of 60 beats per minute, regular; temperature 98, respirations 20, height is 5 feet 5 inches, weight is 174 pounds. HEENT: Head normocephalic. Eyes anicteric with pink conjunctivae. Funduscopy not possible at this time. Ears, nose, and throat otherwise normal. She has facial and periorbital edema as noted. NECK: Supple. Thyroid gland shows healed surgical scars in the anterior neck area. No cervical adenopathy noted. HEART: Adynamic precordium. S1, S2 are slow and regular. LUNGS: Clear to auscultation. ABDOMEN: Flat, soft, with positive bowel sounds. EXTREMITIES: No peripheral edema. Pulses are +2 bilaterally. LABORATORY DATA: Her thyroid studies showed a total T4 of 0.8 with a free T4 of less than 0.07 and a TSH of 200. Her cholesterol is over 325, triglycerides 147, HDL is 61, LDL is 294. Initial chemistries reveal a BUN of 17, sodium 135, potassium 3.6, chloride 105, CO2 of 24, glucose of 100, and creatinine 1. ASSESSMENT: This is a 58-year-old female with marked and overt hypothyroidism, noted both historically, clinically, and biochemically, related to a subtherapeutic regimen with superimposed recent drug omission presenting here with syncope and an accidental fall with a head injury, sustaining a right parietal, subarachnoid hemorrhage as noted. She has had two surgical resections of the thyroid gland for a large and recurrent multinodular goiter with concomitant tracheal compression as noted. We would then expect higher levothyroxine replacement therapy thereof. PLAN OF MANAGEMENT: Would highly recommend at this time parenteral levothyroxine replacement therapy as any oral preparations will not be absorbed with the expected edematous gastric mucosa including full absorption of the levothyroxine medications given orally at this time. It would be more efficacious to give the levothyroxine parenterally to fully replenish the diminished peripheral stores showing a thyroxine level of 0.8 as noted. Would give a stat dose of levothyroxine at 400 mcg IV push today as ordered and discussed with the medical scribe. Would also give a subsequent dosing tomorrow morning of 200 mcg IV push as ordered. She is possibly scheduled for discharge tomorrow and would highly recommend a higher dosing for outpatient management of levothyroxine given as 400 mcg p.o. once daily in the morning as ordered. We will obtain serial chemistries and supplement accordingly as needed. We will also obtain serial thyroid studies accordingly. We would also add a thyroglobulin panel and a calcitonin level to the aforementioned lab testing for tomorrow. Holli Rodríguez MD [facility] # [id number]
[2018-09-08 06:47] LABS: BASO # 0.06 K/mm3 (0.0-2.0); BASO % 1.5 % (0.0-3.0); EOS # 0.1 (0.0-0.7); EOS % 2.2 % (1.5-5.0); HEMOGLOBIN 12.6 g/dL (12.0-16.0); LYMPH % 49.4 % (22.0-35.0); MEAN CELL VOLUME 91.6 fl (80.0-105.0); MEAN CORPUSCULAR HEMOGLOBIN 30.1 pg (25.0-35.0); MEAN CORPUSCULAR HGB CONC 32.8 g/dl (31.0-37.0); MEAN PLATELET VOLUME 8.6 fl (7.0-11.0); MONO # 0.4 (0.1-0.6); MONO % 9.1 % (1.0-6.0); RBC 4.19 10^6/uL (3.5-6.1); RED CELL DISTRIBUTION WIDTH 13.7 % (11.5-14.5); WHITE BLOOD COUNT 4.1 10^3/uL (4.5-11.0)
[2018-09-08 07:10] LABS: ALB/GLOB RATIO 1.1 (1.1-1.8); ALBUMIN 3.9 g/dL (3.0-4.8); ALT/SGPT 42 U/L (7-56); AST/SGOT 53 U/L (14-36); BLOOD UREA NITROGEN 12 mg/dL (7-21); CALCIUM 7.7 mg/dL (8.4-10.5); GFR NON-AFRICAN AMERICAN > 60
[2018-09-08 07:13] LABS: FREE T4 0.79 ng/dL (0.78-2.19)
[2018-09-08] MEDS ORDERED: Calcium Gluconate in NS 1 GM/50 ML BAG IV ONE (08:00)
--- NOTE | 2018-09-08 09:24 | CP.PCM.CON ---
History of Present Illness - History of Present Illness History of Present Illness: Neuro consult (Dr. Lanie Lebron PGY - [address] Pedro Reason for consult Syncope 58 F with pertinent medical history of HLD, MICHOACANO, Migraines, and SLE presents s/p syncopal episode. Patient states that she got up from a sitting position and felt dizzy, then took a few steps and fell backward, hitting her head. ED workup showed small posterior SAH and patient was sent to telemetry floor. Currently denies any further symptoms besides a headache; denies tongue biting, loss of bowel bladder, loss of sensation or motor. Does state that she felt dizzy this morning when she went to the bathroom but she sat back down, reuben slowly, and it resolved. Review of systems: 12 point ROS obtained/negative except as per HPI PMH: SLE, hypothyroidism, goiters, iron deficiency anemia, fibromyalgia, nephrolithiasis, HLD, MICHOACANO on CPAP, migraines, All: NKDA PSH: Thyroidectomy, cholecystectomy (1981), hysterectomy SH: Denies smoking, ETOH, illicit drug use FH: Mother: : schizophrenia, ETOH abuse. Father: noncontributory Meds: Xanax, flexeril 10mg qd, zoloft 50mg qd, ambien cr 12.5mg hs ([facility]). hydroxychloroquine, gabapentin, ambien, levothyroxine Past Patient History - Tetanus Immunizations Tetanus Immunization: Unknown - Past Social History Smoking Status: Never Smoked - CARDIAC Hx Cardiac Disorders: Yes Hx Hypercholesterolemia: Yes (HLD) Hx Hypertension: Yes - PULMONARY Hx Respiratory Disorders: Yes Hx Sleep Apnea: Yes (CPAP) - NEUROLOGICAL Hx Neurological Disorder: Yes (FIBROMYALGIA) Hx Dizziness: Yes (SYNCOPE) Hx Migraine: Yes - HEENT Hx HEENT Problems: No - RENAL Hx Chronic Kidney Disease: No - ENDOCRINE/METABOLIC Hx Hypothyroidism: Yes - HEMATOLOGICAL/ONCOLOGICAL Hx Blood Disorders: No - INTEGUMENTARY Hx Dermatological Problems: No - MUSCULOSKELETAL/RHEUMATOLOGICAL Hx Musculoskeletal Disorders: Yes Hx Falls: Yes (SYNCOPE 09-06-18) - GASTROINTESTINAL Hx Gastrointestinal Disorders: Yes (GASTROENTERITIS,CONSTIPATION,) Hx Gall Bladder Disease: Yes (CHOLECYSTECTOMY) Hx Gastroesophageal Reflux: Yes - GENITOURINARY/GYNECOLOGICAL Hx Genitourinary Disorders: No - PSYCHIATRIC Hx Psychophysiologic Disorder: Yes (INSOMNIA) Hx Anxiety: Yes - SURGICAL HISTORY Hx Surgeries: Yes Hx Cholecystectomy: Yes Hx Gastric Bypass Surgery: Yes Hx Hysterectomy: Yes - ANESTHESIA Hx Anesthesia: Yes Hx Anesthesia Reactions: No Hx Malignant Hyperthermia: No Meds Home Medications: Home Medication List Medication Instructions Recorded Confirmed Type Atorvastatin [Lipitor] 40 mg PO DAILY 30 Days #30 tab 09/08/18 Rx Levothyroxine Sodium [Synthroid] 400 mcg PO QAM 30 Days #30 tablet 09/08/18 Rx Allergies/Adverse Reactions: Allergies Allergy/AdvReac Type Severity Reaction Status Date / Time No Known Allergies Allergy Verified 09/06/18 22:13 - Medications Medications: Current Medications Acetaminophen (Tylenol 325mg Tab) 650 mg PO Q6H PRN PRN Reason: Pain, Mild (1-3) Last Admin: 09/08/18 05:01 Dose: 650 mg Atorvastatin Calcium (Lipitor) 40 mg PO DAILY [facility] Famotidine (Pepcid) 20 mg PO 1000,2200 [facility] Last Admin: 09/07/18 22:09 Dose: 20 mg Hydroxychloroquine Sulfate (Plaquenil) 200 mg PO BID [facility]; Protocol Last Admin: 09/07/18 17:41 Dose: 200 mg Levothyroxine Sodium (Synthroid) 200 mcg IVP ONCE ONE Stop: 09/08/18 10:01 Zolpidem Tartrate (Ambien) 5 mg PO HS [facility]; Protocol Last Admin: 09/07/18 22:09 Dose: 5 mg Physical Exam - Constitutional Appears: Well - Head Exam Head Exam: ATRAUMATIC, NORMAL INSPECTION, NORMOCEPHALIC - Eye Exam Eye Exam: EOMI, Normal appearance, PERRL Pupil Exam: NORMAL ACCOMODATION, PERRL - ENT Exam ENT Exam: Mucous Membranes Moist, Normal Exam - Neck Exam Neck exam: Positive for: Normal Inspection - Respiratory Exam Respiratory Exam: Clear to Auscultation Bilateral, NORMAL BREATHING PATTERN - Cardiovascular Exam Cardiovascular Exam: REGULAR RHYTHM - GI/Abdominal Exam GI & Abdominal Exam: Normal Bowel Sounds, Soft. absent: Tenderness - Extremities Exam Extremities exam: Positive for: normal inspection - Back Exam Back exam: NORMAL INSPECTION - Neurological Exam Neurological exam: Alert, CN II-XII Intact, Normal Gait, Oriented x3, Reflexes Normal - Psychiatric Exam Psychiatric exam: Normal Affect, Normal Mood - Skin Skin Exam: Dry, Intact, Normal Color, Warm - Additional Findings Additional findings: Rotational nystagmus noted on EOM exam; mild cerebellar signs noted with finger to nose Results - Vital Signs Recent Vital Signs: Last Vital Signs Temp 97.6 F 09/08/18 06:00 Pulse 79 09/08/18 06:00 Resp 20 09/08/18 06:00 BP 118/81 09/08/18 06:00 Pulse Ox 97 09/08/18 06:00 - Labs Result Diagrams: 09/08/18 06:10 09/08/18 06:10 Labs: Laboratory Results - last 24 hr 09/07/18 09/07/18 09/07/18 07:00 09:15 09:15 WBC RBC Hgb Hct MCV MCH MCHC RDW Plt Count MPV Neut % (Auto) Lymph % (Auto) [place] % (Auto) Eos % (Auto) Baso % (Auto) Lymph # (Auto) [place] # (Auto) Eos # (Auto) Baso # (Auto) Absolute Neuts (auto) Sodium Potassium Chloride Carbon Dioxide Anion Gap BUN Creatinine Est GFR ( Amer) Est GFR (Non-Af Amer) Random Glucose Hemoglobin A1c 5.9 Calcium Phosphorus Magnesium Total Bilirubin AST ALT Alkaline Phosphatase Total Protein Albumin Globulin Albumin/Globulin Ratio Free T4 Thyroxine (T4) 0.8 L Free T3 pg/mL 0.89 L TSH 3rd Generation 09/08/18 09/08/18 09/08/18 06:10 06:10 06:10 WBC 4.1 L D RBC 4.19 Hgb 12.6 Hct 38.4 MCV 91.6 MCH 30.1 MCHC 32.8 RDW 13.7 Plt Count 205 MPV 8.6 Neut % (Auto) 37.8 L Lymph % (Auto) 49.4 H [place] % (Auto) 9.1 H Eos % (Auto) 2.2 Baso % (Auto) 1.5 Lymph # (Auto) 2.0 [place] # (Auto) 0.4 Eos # (Auto) 0.1 Baso # (Auto) 0.06 Absolute Neuts (auto) 1.54 Sodium 139 Potassium 3.6 Chloride 103 Carbon Dioxide 25 Anion Gap 14 BUN 12 Creatinine 0.9 Est GFR ( Amer) > 60 Est GFR (Non-Af Amer) > 60 Random Glucose 77 Hemoglobin A1c Calcium 7.7 L Phosphorus 5.5 H Magnesium 1.7 Total Bilirubin 0.9 AST 53 H ALT 42 Alkaline Phosphatase 74 Total Protein 7.5 Albumin 3.9 Globulin 3.6 Albumin/Globulin Ratio 1.1 Free T4 0.79 Thyroxine (T4) 5.4 L Free T3 pg/mL TSH 3rd Generation 162.00 H Assessment & Plan - Assessment and Plan (Free Text) Assessment: 58 F with syncopal episode and fall with mild SAH. Currently only symptom is a headache; neuro exam reveals horizontal nystagmus with lateral gaze to the right and cerebellar signs. EKG: Sinus tachycardia, non-specific ST/T wave changes. HR 101. QTc 487. CTH 09/06: Possible small focal right parietal subarachnoid hemorrhage. Follow- up advised within [address] examination. No additional abnormality Neurosurgery recommending no acute intervention Repeat CTH 09/07: No acute intracranial findings Carotid U/S 09/07: 1. Bilateral 20-39% proximal ICA stenoses. 2. Antegrade flow in both vertebral arteries H/N CTA 09/07: Intracranial CT angiography fails to demonstrate large vessel occlusion, aneurysm or arteriovascular malformation. Mild atherosclerotic plaque is identified at the bilateral cavernous internal carotid artery segments without significant stenosis.No significant stenosis bilateral common or internal carotid arteries in the neck. Echo 09/07: mild-mod concentric LVH, LVEF 52.2% Plan Subarachnoid Hemorrhage - Continue monitoring on tele - Obtain CTA H/N, read without large vessel occlusion - Repeat Head CT shows no findings - Agree with ACEP for headache, fall precautions, orthostatics, and PT Eval
[2018-09-08] MEDS ORDERED: Levothyroxine 100 mcg (0.1 mg) Inj IVP ONE (10:00)
--- NOTE | 2018-09-08 10:21 | CP.PCM.PN ---
Subjective - Date & Time of Evaluation Date of Evaluation: 09/08/18 Time of Evaluation: 10:19 - Subjective Subjective: PGY-[address] Rodríguez, Endo Tolerated IV synthroid yesterday, (+) BM. No acute complaint Objective - Vital Signs/Intake and Output Vital Signs (last 24 hours): Temp Pulse Resp BP Pulse Ox 97.6 F 79 20 118/81 97 09/08/18 06:00 09/08/18 06:00 09/08/18 06:00 09/08/18 06:00 09/08/18 06:00 Intake and Output: 09/08/18 09/08/18 06:59 18:59 Intake Total 480 Balance 480 - Medications Medications: Current Medications Acetaminophen (Tylenol 325mg Tab) 650 mg PO Q6H PRN PRN Reason: Pain, Mild (1-3) Last Admin: 09/08/18 05:01 Dose: 650 mg Atorvastatin Calcium (Lipitor) 40 mg PO DAILY [facility] Last Admin: 09/08/18 09:28 Dose: 40 mg Famotidine (Pepcid) 20 mg PO 1000,2200 [facility] Last Admin: 09/08/18 09:29 Dose: 20 mg Hydroxychloroquine Sulfate (Plaquenil) 200 mg PO BID [facility]; Protocol Last Admin: 09/08/18 09:28 Dose: 200 mg Zolpidem Tartrate (Ambien) 5 mg PO HS [facility]; Protocol Last Admin: 09/07/18 22:09 Dose: 5 mg - Labs Labs: 09/08/18 06:10 09/08/18 06:10 PT 11.7 SECONDS (9.4-12.5) 09/06/18 16:15 INR 1.05 09/06/18 16:15 APTT 32.3 Seconds (26.9-38.3) 09/06/18 16:15 - Constitutional Appears: No Acute Distress - Head Exam Head Exam: ATRAUMATIC, NORMAL INSPECTION, NORMOCEPHALIC - Eye Exam Eye Exam: EOMI, Normal appearance, PERRL. absent: Scleral icterus Pupil Exam: NORMAL ACCOMODATION - ENT Exam ENT Exam: Mucous Membranes Moist - Neck Exam Neck Exam: Normal Inspection - Respiratory Exam Respiratory Exam: Clear to Ausculation Bilateral. absent: Rales, Rhonchi, Wheezes - Cardiovascular Exam Cardiovascular Exam: REGULAR RHYTHM, +S1, +S2 - GI/Abdominal Exam GI & Abdominal Exam: Soft, Normal Bowel Sounds. absent: Guarding, Rigid - Extremities Exam Extremities Exam: absent: Calf Tenderness, Pedal Edema - Back Exam Back Exam: absent: CVA tenderness (L), CVA tenderness (R) - Neurological Exam Neurological Exam: Alert, Awake, Oriented x3 - Psychiatric Exam Psychiatric exam: Normal Affect, Normal Mood - Skin Skin Exam: Dry, Warm Assessment and Plan - Assessment and Plan (Free Text) Plan: Mr Meza, 58 F with PMH of SLE, surgical hypothyroidism s/p thyroidectomy x 2 due to goiter, iron deficiency anemia, fibromyalgia, nephrolithiasis, HLD, MICHOACANO on CPAP, migraines was admitted for syncope and fall. CT scan showed possible small R parietal subarachnoid hemorrhage. EKG nsr 101, nonspecific ST/Tw changes, QTc 487. Endo was consulted for hypothyrodism TSH 200, FT4 < 0.07. At home she is taking levothyroxine 325 daily but skipped the medicine x 6 days because of traveling [facility] to see granddaughter Surgical hypothyrodism, severe - s/p Synthroid 400 IV x 1 yesterday - today: 200 IV x 1 - After discharge, start levothyroxine 400 mcg ACB starting - repeat thyroid function test in 6-8 weeks - follow thyroglobulin and calcitonin level s/r/d W Dr Rodríguez
[2018-09-08 12:39] VITALS: BP 137/93; PULSE 81; TEMP 97.5
--- NOTE | 2018-09-08 16:05 | CP.PCM.DIS ---
<Michelle Cronin - Last Filed: 09/08/18 16:07> Provider - Provider Date of Admission: 09/06/18 17:31 Attending physician: Argentina Pedro MD Primary care physician: NO PRIMARY CARE PROVIDER Consults: 09/06/18 18:15 Neurology Consult Routine Comment: Consulting Provider: Juan Mckeon Consulting Physician: Juan Mckeon Reason for Consult: ?syncope, LOC s/p fall 09/07/18 09:07 Endocrinology Consult Routine Comment: Consulting Provider: Holli Rodríguez Consulting Physician: Holli Rodríguez Reason for Consult: uncontrolled hypothyroidism Time Spent in preparation of Discharge (in minutes): 45 Diagnosis - Discharge Diagnosis (1) Hypothyroidism Status: Chronic (2) H/O thyroidectomy Status: Chronic (3) Fibromyalgia Status: Chronic (4) Hyperlipidemia Status: Chronic (5) Systemic lupus erythematosus Status: Chronic (6) History of nephrolithiasis Status: Chronic (7) History of migraine Status: Chronic (8) Noncompliance with medication regimen Status: Chronic (9) Syncope Status: Resolved (10) Fall Status: Resolved Hospital Course - Lab Results Lab Results: Micro Results 09/06/18 21:00 Urine,Clean Catch Urine Culture - Final Lactobacillus Species Most Recent Lab Values WBC 4.1 10^3/uL (4.5-11.0) L D 09/08/18 06:10 RBC 4.19 10^6/uL (3.5-6.1) 09/08/18 06:10 Hgb 12.6 g/dL (12.0-16.0) 09/08/18 06:10 Hct 38.4 % (36.0-48.0) 09/08/18 06:10 MCV 91.6 fl (80.0-105.0) 09/08/18 06:10 MCH 30.1 pg (25.0-35.0) 09/08/18 06:10 MCHC 32.8 g/dl (31.0-37.0) 09/08/18 06:10 RDW 13.7 % (11.5-14.5) 09/08/18 06:10 Plt Count 205 10^3/uL (120.0-450.0) 09/08/18 06:10 MPV 8.6 fl (7.0-11.0) 09/08/18 06:10 Neut % (Auto) 37.8 % (50.0-68.0) L 09/08/18 06:10 Lymph % (Auto) 49.4 % (22.0-35.0) H 09/08/18 06:10 [place] % (Auto) 9.1 % (1.0-6.0) H 09/08/18 06:10 Eos % (Auto) 2.2 % (1.5-5.0) 09/08/18 06:10 Baso % (Auto) 1.5 % (0.0-3.0) 09/08/18 06:10 Lymph # (Auto) 2.0 (1.2-3.4) 09/08/18 06:10 [place] # (Auto) 0.4 (0.1-0.6) 09/08/18 06:10 Eos # (Auto) 0.1 (0.0-0.7) 09/08/18 06:10 Baso # (Auto) 0.06 K/mm3 (0.0-2.0) 09/08/18 06:10 Absolute Neuts (auto) 1.54 (1.4-6.5) 09/08/18 06:10 PT 11.7 SECONDS (9.4-12.5) 09/06/18 16:15 INR 1.05 09/06/18 16:15 APTT 32.3 Seconds (26.9-38.3) 09/06/18 16:15 Sodium 139 mmol/L (132-148) 09/08/18 06:10 Potassium 3.6 mmol/L (3.6-5.0) 09/08/18 06:10 Chloride 103 mmol/L (98-107) 09/08/18 06:10 Carbon Dioxide 25 mmol/L (21-33) 09/08/18 06:10 Anion Gap 14 (10-20) 09/08/18 06:10 BUN 12 mg/dL (7-21) 09/08/18 06:10 Creatinine 0.9 mg/dl (0.7-1.2) 09/08/18 06:10 Est GFR ( Amer) > 60 09/08/18 06:10 Est GFR (Non-Af Amer) > 60 09/08/18 06:10 Random Glucose 77 mg/dL (70-110) 09/08/18 06:10 Hemoglobin A1c 5.9 % (4.2-6.5) 09/07/18 07:00 Calcium 7.7 mg/dL (8.4-10.5) L 09/08/18 06:10 Phosphorus 5.5 mg/dL (2.5-4.5) H 09/08/18 06:10 Magnesium 1.7 mg/dL (1.7-2.2) 09/08/18 06:10 Total Bilirubin 0.9 mg/dL (0.2-1.3) 09/08/18 06:10 AST 53 U/L (14-36) H 09/08/18 06:10 ALT 42 U/L (7-56) 09/08/18 06:10 Alkaline Phosphatase 74 U/L (38-126) 09/08/18 06:10 Lactate Dehydrogenase 673 U/L (333-699) 09/06/18 16:15 Total Creatine Kinase 195 U/L (35-230) 09/06/18 16:15 Troponin I < 0.01 ng/mL 09/06/18 16:15 Total Protein 7.5 g/dL (5.8-8.3) 09/08/18 06:10 Albumin 3.9 g/dL (3.0-4.8) 09/08/18 06:10 Globulin 3.6 gm/dL 09/08/18 06:10 Albumin/Globulin Ratio 1.1 (1.1-1.8) 09/08/18 06:10 Triglycerides 147 mg/dL (35-160) 09/07/18 07:00 Cholesterol > 325 mg/dL (130-200) H 09/07/18 07:00 LDL Cholesterol Direct 294 mg/dL (0-129) H 09/07/18 07:00 HDL Cholesterol 61 mg/dL (29-60) H 09/07/18 07:00 Free T4 0.79 ng/dL (0.78-2.19) 09/08/18 06:10 Thyroxine (T4) 5.4 ug/dL (5.5-11.0) L 09/08/18 06:10 Free T3 pg/mL 0.89 pg/mL (2.77-5.27) L 09/07/18 09:15 TSH 3rd Generation 162.00 mIU/mL (0.46-4.68) H 09/08/18 06:10 Urine Color Yellow (YELLOW) 09/06/18 18:50 Urine Appearance Clear (CLEAR) 09/06/18 18:50 Urine pH 6.0 (4.7-8.0) 09/06/18 18:50 Ur Specific [place] 1.025 (1.005-1.035) 09/06/18 18:50 Urine Protein Trace mg/dL (<30 mg/dL) H 09/06/18 18:50 Urine Glucose (UA) Negative mg/dL (NEGATIVE) 09/06/18 18:50 Urine Ketones Trace mg/dL (NEGATIVE) H 09/06/18 18:50 Urine Blood Negative (NEGATIVE) 09/06/18 18:50 Urine Nitrate Negative (NEGATIVE) 09/06/18 18:50 Urine Bilirubin Small (NEGATIVE) H 09/06/18 18:50 Urine Urobilinogen 0.2 E.U./dL (<1 E.U./dL) 09/06/18 18:50 Ur Leukocyte Esterase Small Scarlet/uL (NEGATIVE) H 09/06/18 18:50 Urine RBC None /hpf (0-2) 09/06/18 18:50 Urine WBC 2 - 5 /hpf (0-6) 09/06/18 18:50 Ur Epithelial Cells 10 - 12 /hpf (0-5) H 09/06/18 18:50 Urine Bacteria Small /hpf (NONE) 09/06/18 18:50 Urine Opiates Screen Negative (NEGATIVE) 09/06/18 20:56 Urine Methadone Screen Negative (NEGATIVE) 09/06/18 20:56 Ur Barbiturates Screen Negative (NEGATIVE) 09/06/18 20:56 Ur Phencyclidine Scrn Negative (NEGATIVE) 09/06/18 20:56 Ur Amphetamines Screen Negative (NEGATIVE) 09/06/18 20:56 U Benzodiazepines Scrn Negative (NEGATIVE) 09/06/18 20:56 U Oth Cocaine Metabols Negative (NEGATIVE) 09/06/18 20:56 U Cannabinoids Screen Negative (NEGATIVE) 09/06/18 20:56 Blood Type A NEGATIVE 09/06/18 18:30 Blood Type Confirm A NEGATIVE 09/06/18 21:36 Antibody Screen Negative 09/06/18 18:30 BBK History Checked No verified bt 09/06/18 18:30 - Hospital Course Hospital Course: Upon Admission: 58 y/o F with PMH of SLE, Hypothyroidism, iron deficiency anemia, fibromyalgia, nephrolithiasis, HLD, MICHOACANO on CPAP, migraines presented to ED after being bib EMS after a fainting spell and fall at home. Per pt and at bedside, pt was laying on couch watching when she suddenly got up, began walking a few feet and suddenly fell backward, landing on her sacrum and back. Pt denies any preceding aura, dizziness, chest pain, palpitations prior to the event. Per , pt had lost consciousness for about 10 seconds before waking back up. He denies seeing any convulsions, foaming of the mouth, tongue biting, urinary/bowel incontinence. Upon waking up, pt report she was confused as to what happened and where she was. She denied paralysis upon waking up, however did report general confusion. While in ambulance, symptoms had resolved and she was more alert. Upon interview in ED, pt report she has a diffuse headache and her sacrum hurts where she landed on her back. She denies any neurological symptoms including numbness, tingling, weakness, dizziness, photophobia, neck stiffness. Pt reported she hadn't taken her levothyroxine in about a week as she [place]. Hospital Course: In ED, CT head was read as "possible small focal right parietal subarachnoid hemorrhage." Neurosurgery was notified in the ED and reviewed CT advised no indication for repeat imaging, states normal head ct. Pt was admitted for sync ope s/p fall. Pt was found to by hypothyroid with TSH 200, FT4 <0.07, FT3 0.89. Endocrinology was consulted and patient received 400mg IV levothyroxine followed by 200mg IV levothyroxine. Repeat labs revealed increase in free T4. Neurology was consulted. Repeat CT head was negative. Pt worked with physical therapy who recommended patient go home. CT Head 09/06: Possible small focal right parietal subarachnoid hemorrhage. Follow-up advised within [address] examination. No additional abnormality. CXR 09/06: No active disease. Echo 09/07: LVEF 52.2%. Mild-mod concentric LVH CTA H/N 09/07: Intracranial CT angiography fails to demonstrate large vessel occlusion, aneurysm or arteriovascular malformation. Mild atherosclerotic plaque is identified at the bilateral cavernous internal carotid artery segments without significant stenosis. No significant stenosis bilateral common or inte rnal carotid arteries in the neck. CT Head 09/07: No acute intracranial findings Carotid Artery U/S: 1. Bilateral 20-39% proximal ICA stenoses. 2. Antegrade flow in both vertebral arteries. Upon Discharge: Pt is feeling much better. She has no focal neurological deficits. She was counselled on medication compliance, polypharmacy, outpatient followup with PMD & specialist and to visit nearest ED if she experiences return or new symptoms. Pt was given prescription for increased high intensity statin, levothyroxcine 400mcg and instructed to follow up with PMD. Discharge Exam - Head Exam Head Exam: ATRAUMATIC, NORMAL INSPECTION, NORMOCEPHALIC - Eye Exam Eye Exam: EOMI, Normal appearance - ENT Exam ENT Exam: Normal Exam Additional comments: thyroidectomy scar noted, c/d/i - Neck Exam Neck exam: Normal Inspection - Respiratory Exam Respiratory Exam: NORMAL BREATHING PATTERN, UNREMARKABLE - Cardiovascular Exam Cardiovascular Exam: REGULAR RHYTHM, +S1, +S2 - GI/Abdominal Exam GI & Abdominal Exam: Soft, Unremarkable - Extremities Exam Extremities exam: normal inspection - Back Exam Back exam: NORMAL INSPECTION - Neurological Exam Neurological exam: Alert, Oriented x3 - Psychiatric Exam Psychiatric exam: Normal Affect, Normal Mood - Skin Skin Exam: Dry, Intact, Warm Discharge Plan - Discharge Medications Prescriptions: Atorvastatin [Lipitor] 40 mg PO DAILY 30 Days #30 tab Levothyroxine Sodium [Synthroid] 400 mcg PO QAM 30 Days #30 tablet - Follow Up Plan Condition: STABLE Disposition: HOME/ ROUTINE Instructions: Heart Healthy Diet, Hypothyroidism (Underactive Thyroid) (DC), Syncope (Fainting) (DC) Additional Instructions: * Your Synthroid (Levothyroxine) was increased to 400 mcg daily. Please take on empty stomach at least 45 minutes before breakfast daily. Please do not take the Synthroid with the rest of your medications. Repeat thyroid function test in 6- 8 weeks. Follow on thyroglobulin and calcitonin level outpatient * Follow up with primary care doctor to repeat thyroid function in 6-8 weeks. * Please follow up with your primary care doctor, Dr. Mayorga, within 3-5 days of discharge * Please follow up with your neurologist, Dr. Metcalf, within 1 week of discharge * Please follow up with your rheumatolgist, Dr. Liz, within 1 week of discharge * Please follow up with your intern, Dr. Rodríguez, within 1 week of discharge. When make appointment, mention that you saw Dr Rodríguez at the hospital. * Please discuss your hospital stay with your doctors. * Please resume your prior medications. Please discuss your medications with your doctors * If your symptoms return or you experience new symptoms, please return to the nearest emergency room or call 911. Referrals: Eleazar Mectalf MD [Staff Provider] - Holli Rodríguez MD [Medical Doctor] - Adonis Pisano DO [Doctor Osteopathy] - Kian Mayorga MD [Non-Staff] - Ananya Ngo MD [Staff Provider] - <Argentina Pedro - Last Filed: 09/08/18 16:49> Provider - Provider Date of Admission: 09/06/18 17:31 Attending physician: Argentina Pedro MD Primary care physician: NO PRIMARY CARE PROVIDER Consults: 09/06/18 18:15 Neurology Consult Routine Comment: Consulting Provider: Juan Mckeon Consulting Physician: Juan Mckeon Reason for Consult: ?syncope, LOC s/p fall 09/07/18 09:07 Endocrinology Consult Routine Comment: Consulting Provider: Holli Rodríguez Consulting Physician: Holli Rodríguez Reason for Consult: uncontrolled hypothyroidism Hospital Course - Lab Results Lab Results: Micro Results 09/06/18 21:00 Urine,Clean Catch Urine Culture - Final Lactobacillus Species Most Recent Lab Values WBC 4.1 10^3/uL (4.5-11.0) L D 09/08/18 06:10 RBC 4.19 10^6/uL (3.5-6.1) 09/08/18 06:10 Hgb 12.6 g/dL (12.0-16.0) 09/08/18 06:10 Hct 38.4 % (36.0-48.0) 09/08/18 06:10 MCV 91.6 fl (80.0-105.0) 09/08/18 06:10 MCH 30.1 pg (25.0-35.0) 09/08/18 06:10 MCHC 32.8 g/dl (31.0-37.0) 09/08/18 06:10 RDW 13.7 % (11.5-14.5) 09/08/18 06:10 Plt Count 205 10^3/uL (120.0-450.0) 09/08/18 06:10 MPV 8.6 fl (7.0-11.0) 09/08/18 06:10 Neut % (Auto) 37.8 % (50.0-68.0) L 09/08/18 06:10 Lymph % (Auto) 49.4 % (22.0-35.0) H 09/08/18 06:10 [place] % (Auto) 9.1 % (1.0-6.0) H 09/08/18 06:10 Eos % (Auto) 2.2 % (1.5-5.0) 09/08/18 06:10 Baso % (Auto) 1.5 % (0.0-3.0) 09/08/18 06:10 Lymph # (Auto) 2.0 (1.2-3.4) 09/08/18 06:10 [place] # (Auto) 0.4 (0.1-0.6) 09/08/18 06:10 Eos # (Auto) 0.1 (0.0-0.7) 09/08/18 06:10 Baso # (Auto) 0.06 K/mm3 (0.0-2.0) 09/08/18 06:10 Absolute Neuts (auto) 1.54 (1.4-6.5) 09/08/18 06:10 PT 11.7 SECONDS (9.4-12.5) 09/06/18 16:15 INR 1.05 09/06/18 16:15 APTT 32.3 Seconds (26.9-38.3) 09/06/18 16:15 Sodium 139 mmol/L (132-148) 09/08/18 06:10 Potassium 3.6 mmol/L (3.6-5.0) 09/08/18 06:10 Chloride 103 mmol/L (98-107) 09/08/18 06:10 Carbon Dioxide 25 mmol/L (21-33) 09/08/18 06:10 Anion Gap 14 (10-20) 09/08/18 06:10 BUN 12 mg/dL (7-21) 09/08/18 06:10 Creatinine 0.9 mg/dl (0.7-1.2) 09/08/18 06:10 Est GFR ( Amer) > 60 09/08/18 06:10 Est GFR (Non-Af Amer) > 60 09/08/18 06:10 Random Glucose 77 mg/dL (70-110) 09/08/18 06:10 Hemoglobin A1c 5.9 % (4.2-6.5) 09/07/18 07:00 Calcium 7.7 mg/dL (8.4-10.5) L 09/08/18 06:10 Phosphorus 5.5 mg/dL (2.5-4.5) H 09/08/18 06:10 Magnesium 1.7 mg/dL (1.7-2.2) 09/08/18 06:10 Total Bilirubin 0.9 mg/dL (0.2-1.3) 09/08/18 06:10 AST 53 U/L (14-36) H 09/08/18 06:10 ALT 42 U/L (7-56) 09/08/18 06:10 Alkaline Phosphatase 74 U/L (38-126) 09/08/18 06:10 Lactate Dehydrogenase 673 U/L (333-699) 09/06/18 16:15 Total Creatine Kinase 195 U/L (35-230) 09/06/18 16:15 Troponin I < 0.01 ng/mL 09/06/18 16:15 Total Protein 7.5 g/dL (5.8-8.3) 09/08/18 06:10 Albumin 3.9 g/dL (3.0-4.8) 09/08/18 06:10 Globulin 3.6 gm/dL 09/08/18 06:10 Albumin/Globulin Ratio 1.1 (1.1-1.8) 09/08/18 06:10 Triglycerides 147 mg/dL (35-160) 09/07/18 07:00 Cholesterol > 325 mg/dL (130-200) H 09/07/18 07:00 LDL Cholesterol Direct 294 mg/dL (0-129) H 09/07/18 07:00 HDL Cholesterol 61 mg/dL (29-60) H 09/07/18 07:00 Free T4 0.79 ng/dL (0.78-2.19) 09/08/18 06:10 Thyroxine (T4) 5.4 ug/dL (5.5-11.0) L 09/08/18 06:10 Free T3 pg/mL 0.89 pg/mL (2.77-5.27) L 09/07/18 09:15 TSH 3rd Generation 162.00 mIU/mL (0.46-4.68) H 09/08/18 06:10 Urine Color Yellow (YELLOW) 09/06/18 18:50 Urine Appearance Clear (CLEAR) 09/06/18 18:50 Urine pH 6.0 (4.7-8.0) 09/06/18 18:50 Ur Specific [place] 1.025 (1.005-1.035) 09/06/18 18:50 Urine Protein Trace mg/dL (<30 mg/dL) H 09/06/18 18:50 Urine Glucose (UA) Negative mg/dL (NEGATIVE) 09/06/18 18:50 Urine Ketones Trace mg/dL (NEGATIVE) H 09/06/18 18:50 Urine Blood Negative (NEGATIVE) 09/06/18 18:50 Urine Nitrate Negative (NEGATIVE) 09/06/18 18:50 Urine Bilirubin Small (NEGATIVE) H 09/06/18 18:50 Urine Urobilinogen 0.2 E.U./dL (<1 E.U./dL) 09/06/18 18:50 Ur Leukocyte Esterase Small Scarlet/uL (NEGATIVE) H 09/06/18 18:50 Urine RBC None /hpf (0-2) 09/06/18 18:50 Urine WBC 2 - 5 /hpf (0-6) 09/06/18 18:50 Ur Epithelial Cells 10 - 12 /hpf (0-5) H 09/06/18 18:50 Urine Bacteria Small /hpf (NONE) 09/06/18 18:50 Urine Opiates Screen Negative (NEGATIVE) 09/06/18 20:56 Urine Methadone Screen Negative (NEGATIVE) 09/06/18 20:56 Ur Barbiturates Screen Negative (NEGATIVE) 09/06/18 20:56 Ur Phencyclidine Scrn Negative (NEGATIVE) 09/06/18 20:56 Ur Amphetamines Screen Negative (NEGATIVE) 09/06/18 20:56 U Benzodiazepines Scrn Negative (NEGATIVE) 09/06/18 20:56 U Oth Cocaine Metabols Negative (NEGATIVE) 09/06/18 20:56 U Cannabinoids Screen Negative (NEGATIVE) 09/06/18 20:56 Blood Type A NEGATIVE 09/06/18 18:30 Blood Type Confirm A NEGATIVE 09/06/18 21:36 Antibody Screen Negative 09/06/18 18:30 BBK History Checked No verified bt 09/06/18 18:30 Attending/Attestation - Attestation I have personally seen and examined this patient.: Yes I have fully participated in the care of the patient.: Yes I have reviewed all pertinent clinical information, including history, physical exam and plan: Yes Notes (Text): Attending note: Patient Seen and examined with resident. Patient's family by the bedside. Patient is alert and awake. Currently denies any dizziness. Denies any chest pain, shortness of breath Denies any abdominal pain, nausea, vomiting. Denies any urinary, bowel symptoms. Patient is a 58-year-old female with PMH of SLE, Hypothyroidism, iron deficiency anemia, fibromyalgia, nephrolithiasis, HLD, migraines presented to ED after being bib EMS after a fainting spell and fall at home. 1. Syncope/fall; patient denied urinary or bowel incontinence. Initial CT head showed possible subarachnoid hemorrhage. Repeat CT head is negative. Neurology evaluation appreciated. CTA head and neck is negative for any stenosis. Echocardiogram showed LVH and normal ejection fraction. Neurology evaluation appreciated. 2.Lupus; continue hydroxychloroquine . 3. Fibromyalgia; patient has chronic pain syndrome. Takes Xanax and Flexeril as needed. Advised to taper down and discontinue sedatives. 4. Insomnia. ; Patient takes high-dose of Ambien at night . Advised to taper down. Possible polypharmacy's reason for syncope. 5. Hypothyroidism; Patient has history of thyroidectomy. TSH is 200. Added on IV Synthroid. Endocrinology evaluation appreciated. Patient compliance insisted in detail. Patient apparently did not take Synthroid over a week. 6. HyperLipidemia; Continue Lipitor. PT evaluation appreciated. Patient will be discharged home today. Upon discharge the patient will follow up with PMD . 09/08/18 16:49
--- NOTE | 2018-09-08 23:09 | PN ---
DATE: 09/08/2018 ENDOCRINOLOGY FOLLOWUP NOTE LOCATION: In room 272. SUBJECTIVE: This is a 58-year-old female with recent admission for syncope and associated head injury with a subarachnoid hemorrhage in the right parietal lobe and was also found to have marked hypothyroidism and is being followed closely for metabolic management. She has improved clinically and metabolically as noted thereof. LABORATORY DATA: Her latest chemistry showed a BUN of 12, sodium 139, potassium 3.6, chloride 103, CO2 of 25, glucose 77, and creatinine 0.9. Her repeat thyroid studies showed a T4 or thyroxine level of 5.4 with a TSH of 162.00 and a free T4 of 0.79. ASSESSMENT: This is a 58-year-old female with surgical hypothyroidism and clearly a subtherapeutic levothyroxine replacement therapy with concomitant drug omission contributing to the aforementioned and presenting here with a syncopal episode and sustained a right parietal subarachnoid hemorrhage as noted. PLAN OF MANAGEMENT: The patient received parenteral levothyroxine given as a stat dose of 400 mcg IV push yesterday as given and tolerated. Today, she also got a second dose of levothyroxine at 200 mcg IV push as given and also very well tolerated with remarkable improvement of her thyroid indices as expected. Would highly recommend the higher dosing for outpatient management of levothyroxine given as 400 mcg p.o. once daily in the morning as ordered. She is scheduled to follow with her books binder and medical doctor for ongoing medical and endocrine followup on the outpatient. The imperative need for adherence to her levothyroxine dosing has been discussed with the patient and also even the potential cardiovascular complications of persistent hypothyroidism have also been discussed with the patient at bedside. We will follow and advise accordingly. Holli Rodríguez MD
--- NOTE | 2018-09-09 00:17 | CP.PCM.PN ---
Subjective - Date & Time of Evaluation Date of Evaluation: 09/08/18 Time of Evaluation: 09:00 - Subjective Subjective: Neuro progress note - Bernardino PGY - 2 Patient seen and examined at bedside with no acute overnight events. Patient denies any acute complaints; is doing well would like to go home. Son, daughter in law, and at bedside Objective - Vital Signs/Intake and Output Vital Signs (last 24 hours): Temp Pulse Resp BP Pulse Ox 97.5 F L 81 20 137/93 H 97 09/08/18 12:00 09/08/18 12:00 09/08/18 12:00 09/08/18 12:00 09/08/18 06:00 Intake and Output: 09/08/18 09/09/18 18:59 06:59 Intake Total 960 Output Total 4 Balance 956 - Labs Labs: 09/08/18 06:10 09/08/18 06:10 PT 11.7 SECONDS (9.4-12.5) 09/06/18 16:15 INR 1.05 09/06/18 16:15 APTT 32.3 Seconds (26.9-38.3) 09/06/18 16:15 - Constitutional Appears: Well - Head Exam Head Exam: ATRAUMATIC, NORMAL INSPECTION, NORMOCEPHALIC - Eye Exam Eye Exam: EOMI, Normal appearance, PERRL Pupil Exam: NORMAL ACCOMODATION, PERRL - ENT Exam ENT Exam: Mucous Membranes Moist, Normal Exam - Neck Exam Neck Exam: Full ROM, Normal Inspection. absent: Lymphadenopathy - Respiratory Exam Respiratory Exam: Clear to Ausculation Bilateral, NORMAL BREATHING PATTERN - Cardiovascular Exam Cardiovascular Exam: REGULAR RHYTHM, +S1, +S2. absent: Murmur - GI/Abdominal Exam GI & Abdominal Exam: Soft, Normal Bowel Sounds. absent: Tenderness - Extremities Exam Extremities Exam: Full ROM, Normal Capillary Refill, Normal Inspection. absent: Joint Swelling, Pedal Edema - Back Exam Back Exam: NORMAL INSPECTION - Neurological Exam Neurological Exam: Alert, Awake, CN II-XII Intact, Normal Gait, Oriented x3 - Psychiatric Exam Psychiatric exam: Normal Affect, Normal Mood - Skin Skin Exam: Dry, Intact, Normal Color, Warm Assessment and Plan - Assessment and Plan (Free Text) Assessment: 58 F with syncopal episode and fall with mild SAH. Currently only symptom is a headache; neuro exam revealed horizontal nystagmus with lateral gaze to the right and cerebellar signs, which have now resolved. EKG: Sinus tachycardia, non-specific ST/T wave changes. HR 101. QTc 487. CTH 09/06: Possible small focal right parietal subarachnoid hemorrhage. Follow- up advised within [address] examination. No additional abnormality Neurosurgery recommending no acute intervention Repeat CTH 09/07: No acute intracranial findings Carotid U/S 09/07: 1. Bilateral 20-39% proximal ICA stenoses. 2. Antegrade flow in both vertebral arteries H/N CTA 09/07: Intracranial CT angiography fails to demonstrate large vessel occlusion, aneurysm or arteriovascular malformation. Mild atherosclerotic p laque is identified at the bilateral cavernous internal carotid artery segments without significant stenosis.No significant stenosis bilateral common or internal carotid arteries in the neck. Echo 09/07: mild-mod concentric LVH, LVEF 52.2% Plan Subarachnoid Hemorrhage - resolved - Possibility that patient had a very small bleed which is now resolved, or that the initial CT just had artifact - Patient is without complaints or focal neurological deficits today
[2018-09-09 19:29] LABS: THYROGLOBULIN <0.1 ng/mL (2.8-40.9)
== END 2018-09-08 14:11 | disposition home or self-care (01) | DRG 84 ==
LOC: ED 14:41 → ERH 17:31 → 2RSO 19:39
PROVIDERS: ADMIT Internal Medicine; ATTEND Internal Medicine
DX: S06.6X9A Traumatic subarachnoid hemorrhage with loss of consciousness of unspecified duration, initial encounter (principal); R55 Syncope and collapse; M32.9 Systemic lupus erythematosus, unspecified; E89.0 Postprocedural hypothyroidism; M79.7 Fibromyalgia; D50.9 Iron deficiency anemia, unspecified; I10 Essential (primary) hypertension; G47.33 Obstructive sleep apnea (adult) (pediatric); G43.909 Migraine, unspecified, not intractable, without status migrainosus; G89.4 Chronic pain syndrome; E78.5 Hyperlipidemia, unspecified; F41.1 Generalized anxiety disorder; G47.00 Insomnia, unspecified; W19.XXXA Unspecified fall, initial encounter; Y92.009 Unspecified place in unspecified non-institutional (private) residence as the place of occurrence of the external cause; Z98.84 Bariatric surgery status; Z87.442 Personal history of urinary calculi; Z91.14 Patient's other noncompliance with medication regimen